=== PATIENT | male | born 1935 | race Caucasian/White ===

== ENCOUNTER 2020-06-21 08:52 | Inpatient (IN) | payer OTHER, MEDICAID, SELFPAY ==
[~2020-06-21] VITALS: Ht 167.6 cm; Wt 53.5 kg
[2020-06-21 08:58] VITALS: BP 120/51
--- NOTE | 2020-06-21 09:02 | NUR ---
PATIENT AMBULATED TO BED 3.
[2020-06-21 10:00] LABS: BASOPHILS % (AUTO) 0.3 % (0.0-2.0); EOSINOPHILS % (AUTO) 0.5 % (0.0-4.0); HEMOGLOBIN 10.6 g/dL (12.0-18.0); LYMPHOCYTES # (AUTO) 0.5 K/uL (2.0-11.5); LYMPHOCYTES % (AUTO) 7.4 % (20.5-51.1); MEAN CORPUSCULAR HEMOGLOBIN 30 pg (27-31); MEAN CORPUSCULAR HGB CONC 32 g/dL (33-37); MEAN CORPUSCULAR VOLUME 92.5 fL (80-94); MONOCYTES # (AUTO) 0.7 K/uL (0.8-1.0); MONOCYTES % (AUTO) 11.6 % (1.7-9.3); NEUTROPHILS # (AUTO) 4.9 K/uL (1.8-7.7); NEUTROPHILS % (AUTO) 80.2 % (42.2-75.2); PLATELET COUNT (AUTO) 217 K/uL (140-450); RED BLOOD CELL COUNT(AUTO) 3.57 MIL/uL (4.20-6.10); RED CELL DISTRIBUTION WIDTH 16.3 % (11.6-13.7); WHITE BLOOD COUNT (AUTO) 6.1 K/uL (4.8-10.8)
[2020-06-21 10:16] LABS: ANION GAP 9.5 (8-16); ASPARTATE AMINOTRANSFERASE 30 U/L (15-37); CARBON DIOXIDE 28.5 mmol/L (21-32); CHLORIDE 103 mmol/L (98-107); GLUCOSE 100 mg/dL (74-106); SODIUM SERUM 137 mmol/L (136-145); TOTAL BILIRUBIN 0.6 mg/dL (0.0-1.0); UREA NITROGEN, BLOOD 25 mg/dL (7-18)
[2020-06-21 10:27] LABS: RSV NEGATIVE (NEGATIVE)
[2020-06-21] MEDS ORDERED: FERR-212 PO (10:27)
[2020-06-21] MEDS ORDERED: VITD400 GT (10:27)
[2020-06-21] MEDS ORDERED: APIX5TAB PO (10:27)
[2020-06-21 10:39] LABS: PROTHROMBIN TIME 12.1 secs (10.8-13.4)
[2020-06-21 10:42] LABS: C-REACTIVE PROTEIN QUANT 1.2 mg/dL (0.0-0.9)
--- NOTE | 2020-06-21 10:43 | NUR ---
@1963 Received care of 84 y/o male coming from home c/o bilateral lower extremity pitting edema x 1 week, presented to the ER dyspneic, SpO2 90-91% per dorothea RN. Pt first noticed swelling a day after getting his Covid shot. Pt has Hx of Afib, on blood thinners per pt's son contacted through pt's phone. Pt reports NKA. Pt connected to shoe fitter, supplemental O2 via NC @ 2lpm. assessing pt @ bedside.
[2020-06-21] MEDS ORDERED: PIPERACILLIN/TAZOBACTAM 3.375 GM in DEXTROSE 5% 50 ML IV ONE (10:50)
[2020-06-21] MEDS ORDERED: PIPERACILLIN/TAZOBACTAM 3.375 GM VIAL IV ONE (11:09)
[2020-06-21 11:10] LABS: BILIRUBIN,URINE NEGATIVE (NEGATIVE); BLOOD, URINE NEGATIVE (NEGATIVE); COLOR,URINE ORANGE (YELLOW); LEUKOCYTE ESTERASE ,URINE NEGATIVE (NEGATIVE); NITRITE, URINE NEGATIVE (NEGATIVE); UGLUCOSE NEGATIVE (NEGATIVE)
[2020-06-21 11:21] LABS: APPEARANCE,URINE CLEAR (CLEAR); RBC,URINE 0-5 /HPF (0-5); WBC,URINE 0-5 /HPF (0-5)
[2020-06-21] MEDS ORDERED: ASPIRIN 81 MG TAB.CHEW PO ONE (11:40)
--- NOTE | 2020-06-21 12:15 | NUR ---
Patient taken to CT via mani
--- NOTE | 2020-06-21 12:32 | NUR ---
Covid swab collected and given to phleb.
--- NOTE | 2020-06-21 14:00 | NUR ---
RECEIVED ENDORSEMENT FROM ER NURSE ODELL. PATIENT IN BED AOX4. PATIENT ADMITTED WITH CHIEF COMPLAINT OF SOB AND BILATERAL SWELLING OF LEGS. DX PNA. HX OF ATRIAL FIB. PATIENT IS NKA AND FULL CODE. INFLUENZA A-B IS NEGATIVE. RSV IS NEGATIVE. PATIENT HAS IV LINE WITH RIGHT FOREARM 18 GAUGE ON SALINE LOCK. IS ON 3 LITERS NASAL CANULA W/ 100% O2. CXR RESULTS ARE PULMONARY VASCULAR CONGESTION. CTA RESULTS ARE CHF W/ CARDIOMEGALY, PULMONARY VASCULAR CONGESTION, INTERSTITIAL EDEMA, BILATERAL PLEURAL EFFUSION. SAFETY MEASURES ARE IN PLACE. CALL LIGHT WITHIN REACH. WILL CONTINUE TO MONITOR NEEDED.
--- NOTE | 2020-06-21 14:08 | NUR ---
Patient will be admitted to care of DR SEARS. Admited to TELE . Will go to room 122B. Belongings list completed. Report to SANDY FU.
--- NOTE | 2020-06-21 14:10 | NUR ---
MRSA SAMPLE IS OBTAINED FROM PATIENT. SENT TO LABS. AWAITING RESULTS.
[2020-06-21 14:40] VITALS: BP 128/76
[2020-06-21] MEDS ORDERED: POTASSIUM CHLORIDE 10 MEQ TABER PO PRN (15:25)
[2020-06-21] MEDS ORDERED: ZOLPIDEM 5 MG TAB PO PRN (15:25)
[2020-06-21] MEDS ORDERED: guaiFENesin DM 200/20 MG-10 ML 10 ML UDC PO PRN (15:25)
[2020-06-21] MEDS ORDERED: ACETAMINOPHEN 325 MG TAB PO PRN (15:25)
[2020-06-21] MEDS ORDERED: HYDROcodone/APAP 7.5/325 MG 1 TAB PO PRN (15:25)
[2020-06-21] MEDS ORDERED: DOCUSATE SODIUM 100 MG GELCAP PO PRN (15:25)
[2020-06-21] MEDS ORDERED: ONDANSETRON 4 MG/2 ML VIAL IM/IVP PRN (15:25)
[2020-06-21] MEDS: NACL 0.9% 1,000 ML IV SCH (16:05)
[2020-06-21 16:10] LABS: CHOL/HDL RATIO 1.6 (1-4.5); FREE T4 (FREE THYROXINE) 1.23 ng/dL (0.76-1.46); MAGNESIUM 1.5 mg/dL (1.8-2.4); PHOSPHORUS 2.7 mg/dL (2.5-4.9); THYROID STIMULATING HORMONE 5.72 uIU/mL (0.34-3.74)
--- NOTE | 2020-06-21 16:10 | NUR ---
MEDICATION DUE GIVEN CHECK VITAL SIGNS PRIOR TO MEDICATION BP 150/81 LA 64 OXYGEN SATURATION 99%.
[2020-06-21] MEDS ORDERED: FUROSEMIDE 100 MG/10 ML VIAL IV SCH (16:30)
[2020-06-21] MEDS: ATORVASTATIN 20 MG TAB PO SCH (16:34)
[2020-06-21 16:45] VITALS: BP 150/81
--- NOTE | 2020-06-21 17:07 | NUR ---
PATIENT ON TELEMONITOR HR 41 A FIB AND BACK TO HR 66. DR SEARS AWARE.WILL CONTINUE TO MONITOR.
[2020-06-21] MEDS: PIPERACILLIN/TAZOBACTAM 3.375 GM in DEXTROSE 5% 50 ML IV SCH (17:14)
--- NOTE | 2020-06-21 17:16 | NUR ---
PATIENT SCHEDULED MEDICATION GIVEN. PATIENT IN BED STABLE NO DISTRESS NOTED. WILL CONTINUE TO MONITOR NEEDED.
--- NOTE | 2020-06-21 19:13 | NUR ---
ENDORSED CONTINUATION PLAN OF CARE TO DATASTAGE ARCHITECT NURSE. PATIENT IS STABLE.
[2020-06-21 20:00] VITALS: BP 142/78
[2020-06-21] MEDS ORDERED: CRUSHER, PILL MC ONE (20:48)
[2020-06-21] MEDS: METOPROLOL 25 MG TAB PO SCH (20:49)
[2020-06-22] VITALS: BP 138/76
[2020-06-22] MEDS: NACL 0.9% 1,000 ML IV SCH ×2 (03:55→16:35)
[2020-06-22 04:00] VITALS: BP 134/76
[2020-06-22 06:05] LABS: ANION GAP 11.3 (8-16); CHLORIDE 100 mmol/L (98-107); CREATININE 1.4 mg/dL (0.6-1.3); GLUCOSE 139 mg/dL (74-106); POTASSIUM 4.3 mmol/L (3.5-5.1); SODIUM SERUM 137 mmol/L (136-145); UREA NITROGEN, BLOOD 26 mg/dL (7-18)
[2020-06-22 06:11] LABS: BASOPHILS % (AUTO) 0.4 % (0.0-2.0); EOSINOPHILS % (AUTO) 0.4 % (0.0-4.0); HEMATOCRIT 37.4 % (36-52); LYMPHOCYTES # (AUTO) 0.6 K/uL (2.0-11.5); LYMPHOCYTES % (AUTO) 6.8 % (20.5-51.1); MEAN CORPUSCULAR HEMOGLOBIN 30 pg (27-31); MEAN CORPUSCULAR HGB CONC 32 g/dL (33-37); MEAN CORPUSCULAR VOLUME 93.6 fL (80-94); MONOCYTES # (AUTO) 0.9 K/uL (0.8-1.0); NEUTROPHILS # (AUTO) 6.7 K/uL (1.8-7.7); NEUTROPHILS % (AUTO) 81.4 % (42.2-75.2); PLATELET COUNT (AUTO) 246 K/uL (140-450); RED CELL DISTRIBUTION WIDTH 16.2 % (11.6-13.7); WHITE BLOOD COUNT (AUTO) 8.2 K/uL (4.8-10.8)
[2020-06-22] MEDS: PIPERACILLIN/TAZOBACTAM 3.375 GM in DEXTROSE 5% 50 ML IV SCH ×5 (06:30→17:33)
--- NOTE | 2020-06-22 07:30 | NUR ---
RECEIVED BEDSIDE ENDORSEMENT FROM [facility] NURSE.
[2020-06-22 08:00] VITALS: BP 147/96
[2020-06-22 08:08] LABS: T4 (THYROXINE) 7.3 ug/dL (4.5-12.0)
--- NOTE | 2020-06-22 08:54 | NUR ---
PATIENT HAS BEEN SCREENED AND CATEGORIZED MODERATE NUTRITION RISK. PATIENT WILL BE SEEN WITHIN 3-5 DAYS OF ADMISSION. 06/24/20 06/26/[address]
[2020-06-22] MEDS: METOPROLOL 25 MG TAB PO SCH ×2 (09:04→21:00)
[2020-06-22] MEDS: PANTOPRAZOLE 40 MG TABEC PO SCH (09:04)
[2020-06-22] MEDS: FUROSEMIDE 20 MG/2 ML VIAL IVP SCH ×2 (09:05→17:22)
--- NOTE | 2020-06-22 09:05 | NUR ---
DC PLANNIN YRS OLD MALE PATIENT WAS ADMITTED FROM HOME WITH A DX OF PNEUMONIA. PT HAS A HX OF CAD , A-FIB AND IRON DEFICIENCY. PT STATED RECEIVED COVID VACCINE LAS WEEK AND C/O WORSENING SOB. CXR SHOWED PNEUMONIA . RAPID COVID TEST NEGATIVE PCR IS PENDING. ON O2 3L/NC SATING 99% STARTED COVID TREATMENT , RT PROTOCOL, ZOSYN IV ABX AND IV LASIX. CONSULTED WITH PULMO AND GRILL ASSOCIATE. DC PLAN TO GO HOME WHEN STABLE CM TO FOLLOW. Addendum: 06/25/20 at 1530 by Nalini Coto RN DC PLANNING: Addendum: 06/26/20 at 1452 by Nalini Coto RN DC PLANNING: CHEST CT AND US SHOWED BILATERAL PLEURAL EFFUSIONS SCHEDULE FOR THORACENTESIS ,CONTINUE IV ABX ZOSYN AND LASIX IV. ON 6L/NC SATING 94% CARDIO, NEPHRO AND PULMO FOLLOWING. CM TO FOLLOW Addendum: 07/02/20 at 1421 by Lacy Talavera REMAINS IN ICU, ON BIPAP FIO2 60%, O2 SAT 98%. ON DOPAMINE DRIP, BP 100/49. ON FUROSEMIDE DRIP. ON TPN. PER CARDIO,NOT A CANDIDATE FOR HD. Addendum: 07/03/20 at 1119 by Lacy Talavera RECEIVED AN ORDER FOR LTAC EVALUATION FOR RESPIRATORY TREATMENT AND IV ANTIBIOTIC FOR PNEUMONIA. CONTACTED PATIENT'S SON GINA SHUKLA JR AT [phone] TO DISCUSS DC PLAN. HE STATED HE HAS HIS GF SHAD WHO IS A NURSE WITH HIM AND IS GIVING ME AUTHORIZATION TO SHARE INFORMATION TO HER. ALL QUESTIONS AND CONCERNS ANSWERED AND BOTH IS IN AGREEMENT WITH THE PLAN. REFERRAL SENT TO [facility]. ROTHMAN MADE AWARE. [facility], THEY ARE ALMOST AT [facility] BUT WILL REACH OUT TO THE PATIENT'S SON IF THEY WANT TO GO OUT OUTSIDE IE. WILL FOLLOW UP. Addendum: 07/04/20 at 0909 by Lacy Talavera CM PER [facility], HE WAS NOT ABLE TO GET A HOLD OF THE PATIENT'S SON TODAY. HE WILL FOLLOW TODAY. WILL FOLLOW UP Addendum: 07/04/20 at 1552 by Lacy Talavera PER LORNA, NO ICU BEDS AVAILABLE AT THIS TIME. WILL FOLLOW UP IN AM. Addendum: 07/06/20 at 1111 by Nalini Coto RN DC PLANNING: RECEIVED A CALL FROM JOAQUIN EASON WITH [facility] UPDATED PT'S CLINICALS AND REQUEST AN ICU BED. PER ANJ[facility] WILL CALL US ONCE ICU BED AVAILABLE. CM TO FOLLOW Addendum: 07/06/20 at 1125 by Sheree Luna CM DC CHARM FILTER OPERATOR HELPER: FAXED UPDATED CLINICALS TO [facility].
--- NOTE | 2020-06-22 09:12 | NUR ---
ADMINISTERED PRESCRIBED MEDS PER MD ORDER. PATIENT TOLERATED WELL. MEDICATION EDUCATION REINFORCEMENT NEEDED DUE TO LANGUAGE BARRIER. PATIENT IN BED EATING BREAKFAST AND WATCHING TELEVISION. NO SIGNS OF DISTRESS NOTED. PATIENT NEEDS REMINDERS TO KEEP NASAL CANNULA IN BOTH NOSTRILS AT ALL TIMES. SAFETY MEASURES IN PLACE. WILL CONTINUE TO MONITOR.
--- NOTE | 2020-06-22 11:11 | NUR ---
SOCIAL WORK NOTE: Patient's Orientation Unable To Assess Information Provided By GINA SHUKLA JR - SON Comments SW WAS UNABLE TO MEET PATIENT AT BEDSIDE TO COMPLETE ASSESSMENT. SW COMPLETED ASSESSMENT WITH PATIENT'S SON. Alumina Refinery Operator, Realtionship and Phone Number GINA SHUKLA JR SON [phone] [facility] Power of Trim Sawyer No Does Patient Have a POLST No Identifying Problems No Social Work Triggers Is A Social Work Consult Needed No Mandate Report Filed No Explanation Of Identifying Problems PATIENT IS AN 84-YEAR-OLD MALE ADMITTED FOR PNEUMONIA. PATIENT HAS PMHX OF CAD, AFIB, AND IRON DEFICIENCY. Admitted From Home Pre-Admission Level Of Functioning Status Independent/Ambulatory Prior Resources/Services Used In Last 12 Months No Prior Resources Used Prior DME No Prior DME Used Dialysis Comments N/A Living Situation Lives With Family House Patient Had Caregiver No Home Support No Caregiver Issues Financial Issues No Known Financial Issue Referral To The Financial Counselor Needed No Factors/Needs No D/C Needs Identified Pt/Rep Participated In Discharge Plan Yes Patient/Family Agress With Discharge Plan Yes Discharge Plan Comments TENTATIVE DISCHARGE PLAN IS FOR PATIENT TO RETURN HOME. DC Plan Status Initiated Addendum: 07/04/20 at 1327 by Gilberto BOYD SABRA CONTACTED PATIENT'S SON GINA SHUKLA JR. [phone] DUE TO VM THAT HE LEFT TO [facility]. SABRA LEFT ADDITIONAL VM TO GINA GAYLA SCHULTZ REGARDING PATIENT'S BELONGINGS.
--- NOTE | 2020-06-22 11:59 | NUR ---
ADMINISTERED PRESCRIBED MEDS PER MD ORDER. PATIENT TOLERATED WELL. MEDICATION EDUCATION REINFORCEMENT NEEDED. PATIENT RESTING IN BED. VISIBLE RISE AND FALL OF CHEST NOTED. NO SIGNS OF DISTRESS. NOON VITAL SIGNS OBTAINED. SAFETY MEASURES IN PLACE. WILL CONTINUE TO MONITOR.
[2020-06-22 12:00] VITALS: BP 149/75
--- NOTE | 2020-06-22 14:26 | NUR ---
HOURLY ROUNDING PERFORMED. PATIENT IN BED WATCHING TELEVISION. LUNCH TRAY UNTOUCHED, PATIENT STATED HE WILL EAT LATER ON TODAY. NO SIGNS OF DISTRESS/DISCOMFORT. PATIENT SPO2 95%. SAFETY MEASURES IN PLACE. WILL CONTINUE TO MONITOR.
[2020-06-22 16:00] VITALS: BP 144/97
--- NOTE | 2020-06-22 16:31 | NUR ---
PATIENT HAS PERIODS OF BRADYCARDIA, HR LOW 34 BPM THEN SHOOTS UP TO SR. DURING EPISODES OF BRADYCARDIA, PATIENT IS CHECKED ON, ALERT AND ORIENTED W/ NO SIGNS OF DISTRESS. PATIENT HAS HISTORY OF AFIB AND CAD. HAS CONSULT W/ [facility]USH AND [employer] CROP FARMER. WILL UPDATE [facility] AND [employer] FARMER W/ PATIENTS STATS.
--- NOTE | 2020-06-22 16:42 | NUR ---
PROTECTIVE SERVICES CASE WORKER NOTIFIED AND ACKNOWLEDGE PATIENT'S STATUS.
[2020-06-22] MEDS: ATORVASTATIN 20 MG TAB PO SCH (17:22)
--- NOTE | 2020-06-22 17:34 | NUR ---
ADMINISTERED PRESCRIBED MEDS PER MD ORDER. PATIENT TOLERATED WELL. MEDICATION EDUCATION REINFORCEMENT NEEDED. SAFETY MEASURES IN PLACE. WILL CONTINUE TO MONITOR.
[2020-06-22] MEDS ORDERED: MAG SULF 2000 MG/WATER PREMIX 50 ML IV SCH (19:00)
--- NOTE | 2020-06-22 19:00 | NUR ---
PATIENT RECEIVED IN BED, ALERT AND ORIENTED X 3 WITH SOME CONFUSION OF SITUATION. PATIENT EDUCATED TO MEDICATION REGIMEN, FALL AND SAFETY PRECAUTIONS AND RN PLAN OF CARE. PATIENT VERBALIZED CONCERNS OF MEDICAL PLAN OF CARE. NO BRADYCARDIA NOTED. NOTED CHF WITH CARDIOMEGALY, PULMONARY VASCULAR CONGESTION WITH BILATERAL PLEURAL EFFUSION. PATIENT RESPIRATIONS ARE EVEN AND NONLABORED. RN DISCUSSED PM MED SCHEDULE. CARDIAC STATUS SINUS RHYTHM. PATIENT RECEPTIVE TO PLAN OF CARE. NO ACUTE DISTRESS NOTED. VITAL SIGNS STABLE. ONGOING CARE RENDERED.
--- NOTE | 2020-06-22 19:29 | NUR ---
PT IN SEMI SCHUMACHER WATCHING TV W/ NO DISTRESS NOTED. PT CURRENTLY ON 2LNC SPO2 95% HR 57. WILL CONTINUE TO MONITOR
--- NOTE | 2020-06-22 19:32 | NUR ---
BEDSIDE ENDORSEMENT GIVEN TO NIGHTSHIFT NURSE FOR CONTINUITY OF CARE.
[2020-06-22 20:00] VITALS: BP 148/72
[2020-06-23] VITALS: BP 118/80
--- NOTE | 2020-06-23 | NUR ---
PATIENT SLEEPING DURING ROUNDING, EASILY AROUSED. FALL AND SAFETY PRECAUTIONS MAINTAINED. VITAL SIGNS STABLE NO ACUTE DISTRESS NOTED.
[2020-06-23 04:00] VITALS: BP 124/78
[2020-06-23] MEDS: NACL 0.9% 1,000 ML IV SCH ×2 (04:55→18:14)
[2020-06-23] MEDS: PIPERACILLIN/TAZOBACTAM 3.375 GM in DEXTROSE 5% 50 ML IV SCH ×5 (06:05→18:15)
[2020-06-23 06:35] LABS: BASOPHILS % (AUTO) 0.5 % (0.0-2.0); EOSINOPHILS % (AUTO) 0.2 % (0.0-4.0); HEMATOCRIT 35.3 % (36-52); HEMOGLOBIN 11.3 g/dL (12.0-18.0); LYMPHOCYTES # (AUTO) 0.4 K/uL (2.0-11.5); MEAN CORPUSCULAR HEMOGLOBIN 30 pg (27-31); MEAN CORPUSCULAR HGB CONC 32 g/dL (33-37); MEAN CORPUSCULAR VOLUME 93.4 fL (80-94); MONOCYTES # (AUTO) 0.6 K/uL (0.8-1.0); MONOCYTES % (AUTO) 9.2 % (1.7-9.3); NEUTROPHILS # (AUTO) 5.8 K/uL (1.8-7.7); NEUTROPHILS % (AUTO) 84.1 % (42.2-75.2); PLATELET COUNT (AUTO) 229 K/uL (140-450); RED BLOOD CELL COUNT(AUTO) 3.78 MIL/uL (4.20-6.10); RED CELL DISTRIBUTION WIDTH 15.9 % (11.6-13.7)
[2020-06-23 06:53] LABS: ANION GAP 11.7 (8-16); CARBON DIOXIDE 29.1 mmol/L (21-32); CHLORIDE 98 mmol/L (98-107); CREATININE 1.2 mg/dL (0.6-1.3); GLUCOSE 145 mg/dL (74-106); POTASSIUM 4.8 mmol/L (3.5-5.1); SODIUM SERUM 134 mmol/L (136-145); UREA NITROGEN, BLOOD 26 mg/dL (7-18)
--- NOTE | 2020-06-23 07:25 | NUR ---
RECEIVED RAPPORT FROM APPRENTICE ELECTRICIAN NURSE. PATIENT RESTING IN BED. RESPIRATIONS EVEN AND UNLABORED. SKIN IS DRY AND WARM TO TOUCH. IV ON RIGHT FORE ARM 18 G CLEAN DRY INTACT. SAFETY MEASURES IN PLACE. WILL CONTINUE TO MONITOR.
[2020-06-23 08:00] VITALS: BP 135/71
[2020-06-23] MEDS: POTASSIUM CHLORIDE 10 MEQ TABER PO SCH (08:34)
[2020-06-23] MEDS: METOPROLOL 25 MG TAB PO SCH ×2 (08:35→21:00)
[2020-06-23] MEDS: PANTOPRAZOLE 40 MG TABEC PO SCH (08:43)
[2020-06-23] MEDS: FUROSEMIDE 40 MG/4 ML VIAL IVP SCH ×2 (08:44→17:34)
--- NOTE | 2020-06-23 08:55 | NUR ---
ADMINISTERED SCHEDULED MEDS PRESCRIBED PER MD ORDER. PT TOLERATED WELL. MEDICATION EDUCATION PERFORMED. PT VERBALIZED UNDERSTANDING. SAFETY MEASURES IN PLACE WILL CONTINUE TO MONITOR.
--- NOTE | 2020-06-23 10:15 | NUR ---
PTE NEEDS TO GO TO BATHROOM. PT IS WEAK STAND BY ASSISTANCE NEEDED. PT TO BE DISCHARGED TOMORROW. ON 3 l NC TRIED WEANING OFF OXYGEN BY REMOVING O2 CANULA BEFORE PATIENT AMBULATED TO BATHROOM. PT USED BATHROOM RETURNED SAFELY BACK TO BED. NO SIGNS OR SYMPTOMS OF RESPIRATORY DISTRESS. PT O2 AT 95% ON ROOM AIR AFTER AMBULATING TO AND FROM THE BATHROOM. PT COMPLAINED OF DIZZINESS. PLACED PT ON 2L SATURATING AT 97% WILL WEAN SLOWLY. SAFETY MEASURES IN PLACE. WILL CONTINUE TO MONITOR
--- NOTE | 2020-06-23 11:00 | NUR ---
PATIENT'S PREVIOUS PCR COVID TEST WAS INDETERMINANT. PER DR. SEARS ORDERS. PT TO RECEIVE ANOTHER TEST. SWABBED PT PER MD ORDER. PT TOLERATED WELL. SPECIMEN SENT BACK TO LAB. WILL CONTINUE TO MONITOR
[2020-06-23 12:00] VITALS: BP 134/79
--- NOTE | 2020-06-23 12:05 | NUR ---
ADMINISTERED SCHED MED PRESCRIBED PER MD ORDER. PT TOLERATED WELL. MEDICATION EDUCATION PERFORMED. PT VERBALIZED UNDERSTANDING. SAFETY MEASURES IN PLACE. WILL CONTINUE TO MONITOR
--- NOTE | 2020-06-23 14:20 | NUR ---
PT AMBULATED TO THE RESTROOM WITH ASSISTANCE TOLERATED WELL. PT IS RESTING IN BED COMFORTABLY. PT ABLE TO MAKE NEEDS KNOWN. RESPIRATIONS EVEN AND UNLABORED WITH NO SOB OR RESPIRATORY DISTRESS. SKIN WARM AND DRY TO TOUCH.SAFETY MEASURES IN PLACE. WILL CONTINUE TO MONITOR
[2020-06-23 16:00] VITALS: BP 135/74
--- NOTE | 2020-06-23 16:25 | NUR ---
PT RESTING IN BED. PT ABLE TO MAKE NEEDS KNOWN. RESPIRATIONS EVEN AND UNLABORED WITH NO SOB OR RESPIRATORY DISTRESS. SKIN WARM AND DRY TO TOUCH. PT COMPLAINED THAT IV SITE WAS LEAKING. IT WAS CHANGED TO LEFT AC 24 G.TOLERATED WELL. NO COMPLAINS OF PAIN AT THIS TIME 0. SAFETY MEASURES IN PLACE. WILL CONTINUE TO MONITOR
[2020-06-23] MEDS: ATORVASTATIN 20 MG TAB PO SCH (17:35)
--- NOTE | 2020-06-23 17:36 | NUR ---
ADMINISTERED SCHED MED PRESCRIBED PER MD ORDER. PT TOLERATED WELL. MEDICATION EDUCATION PERFORMED. PT VERBALIZED UNDERSTANDING. SAFETY MEASURES IN PLACE. WILL CONTINUE TO MONITOR
--- NOTE | 2020-06-23 19:15 | NUR ---
RECEIVED BEDSIDE REPORT FROM DAY SHIFT NURSE FOR CONTINUITY OF CARE. PT IS AWAKE AND ALERT, LAYING IN SEMI FOWLERS POSITION. ON 1L O2 NC WITH BREATHING UNLABORED. PT IS AMBULATORY WITH ASSISTANCE W/ BATHROOM PRIVILEGES. SKIN IS WARM AND DRY. SCAB ON THE RIGHT ELBOW AND KNEE. DISCOLORATION ON THE BILAT LOWER EXTREMITIES. IV IS IN THE RIGHT AX 24 GAUGE RUNNING NS AT 80 ML PER HOUR PER ORDER. PT IS STABLE AT THIS TIME. PLAN OF CARE DISCUSSED. STANDARD AND FALL PRECAUTIONS IN PLACE.
--- NOTE | 2020-06-23 19:20 | NUR ---
ENDORSED TO NIGHTSHIFT FOR CONTINUITY OF CARE. PT IS STABLE
[2020-06-23 20:00] VITALS: BP 136/82
--- NOTE | 2020-06-23 21:00 | NUR ---
PT WAS NOT GIVEN METOPROLOL ORDERED FOR DECREASED PULSE. HR WAS 59 AND BP IS 132/90. WILL CONTINUE TO MONITOR HR AND BP.
--- NOTE | 2020-06-23 23:00 | NUR ---
PT IS STABLE. SLEEPING IN SEMI FOWLERS POSITION WITH BREATHING UNLABORED. PT IS ON 4L O2 NC. NO RESPIRATORY DISTRESS NOTED. AFIB ON TELE MONITORING. IV IS PATENT AND INFUSING. CALL LIGHT IS WITHIN REACH.
[2020-06-24] VITALS: BP 126/75
--- NOTE | 2020-06-24 00:30 | NUR ---
RT AT BEDSIDE ASSESSING PT. PT STATES THAT HIS NOSE IS DRY AND A HUMIDIFIER WAS PLACED ON NC. PT WAS REPOSITIONED IN BED. PILLOWS PLACED TO OFFSET PRESSURE. NO DISTRESS NOTED AT THIS TIME.
[2020-06-24] MEDS: PIPERACILLIN/TAZOBACTAM 3.375 GM in DEXTROSE 5% 50 ML IV SCH ×5 (01:13→23:31)
--- NOTE | 2020-06-24 02:30 | NUR ---
ROUNDED ON PT. NC WAS PLACED BACK ON PT IT FELL OFF DURING SLEEP. O2 SAT IS 90%. NO RESPIRATORY DISTRESS NOTED. BREATHING IS UNLABORED. PT IS SLEEPING. IV IS PATENT AND INFUSING. WILL CONTINUE TO MONITOR.
[2020-06-24 04:00] VITALS: BP 150/78
--- NOTE | 2020-06-24 04:30 | NUR ---
PT IS ASLEEP BUT WAKES UP EASILY WITH NOISE. PT STATES HE IS OKAY RIGHT NOW. NO DISTRESS NOTED. FLUIDS ARE INFUSING. URINAL WAS EMPTIED. BREATHING IS UNLABORED WITH 4L O2 NC IN PLACE. PT IS STABLE.
[2020-06-24] MEDS: NACL 0.9% 1,000 ML IV SCH ×2 (05:01→19:10)
--- NOTE | 2020-06-24 06:10 | NUR ---
BALLASTER AT BEDSIDE TO DRAW LABS. PT TOLERATED THIS WELL. PT WAS REPOSITIONED IN BED HE BEGAN TO SLIDE DOWNWARD. PT REPOSITIONS SELF WITH PILLOWS IN PLACE. WATER WAS PROVIDED. PT IS STABLE.
--- NOTE | 2020-06-24 07:10 | NUR ---
ENDORSED PT TO DAY SHIFT NURSE FOR CONTINUITY OF CARE. PLAN OF CARE DISCUSSED. PT IS STABLE.
--- NOTE | 2020-06-24 07:14 | NUR ---
RECEIVED REPORT FROM NIGHTSHIFT NURSE. PT ABLE TO MAKE NEEDS KNOWN. RESPIRATIONS EVEN AND UNLABORED WITH NO SOB OR RESPIRATORY DISTRESS. SKIN WARM AND DRY TO TOUCH. IV SITE IN RAC 24G IS CLEAN, DRY, AND INTACT. SAFETY MEASURES IN PLACE. WILL CONTINUE TO MONITOR
[2020-06-24 07:19] LABS: BASOPHILS % (AUTO) 0.5 % (0.0-2.0); EOSINOPHILS % (AUTO) 0.3 % (0.0-4.0); HEMATOCRIT 34.3 % (36-52); HEMOGLOBIN 11.1 g/dL (12.0-18.0); LYMPHOCYTES # (AUTO) 0.3 K/uL (2.0-11.5); MEAN CORPUSCULAR HEMOGLOBIN 30 pg (27-31); MEAN CORPUSCULAR HGB CONC 32 g/dL (33-37); MEAN CORPUSCULAR VOLUME 92.7 fL (80-94); MONOCYTES # (AUTO) 0.6 K/uL (0.8-1.0); MONOCYTES % (AUTO) 9.1 % (1.7-9.3); PLATELET COUNT (AUTO) 198 K/uL (140-450); RED CELL DISTRIBUTION WIDTH 16.1 % (11.6-13.7)
[2020-06-24 07:37] LABS: NEUTROPHILS % (AUTO) 86.1 % (42.2-75.2)
[2020-06-24 07:51] LABS: ANION GAP 15.1 (8-16); CARBON DIOXIDE 30.1 mmol/L (21-32); CHLORIDE 96 mmol/L (98-107); CREATININE 1.4 mg/dL (0.6-1.3); GLUCOSE 116 mg/dL (74-106); POTASSIUM 4.2 mmol/L (3.5-5.1); SODIUM SERUM 137 mmol/L (136-145); UREA NITROGEN, BLOOD 28 mg/dL (7-18)
[2020-06-24 08:00] VITALS: BP 122/69
[2020-06-24] MEDS: METOPROLOL 25 MG TAB PO SCH ×2 (09:00→21:33)
--- NOTE | 2020-06-24 09:50 | NUR ---
PT MEDICATION ADMINISTERED ORDERED PER MD. MEDICATION EDUCATION RECEIVED PATIENT VERBALIZED UNDERSTANDING. PT IS BREATHING SYMMETRICALLY AND IS UNLABORED. PT IS ALERT AND WARM TO TOUCH. ALL SAFETY MEASURES ARE IN PLACE. PT DENIES ANY PAIN AT THIS TIME WILL CONTINUE TO MONITOR.
[2020-06-24] MEDS: POTASSIUM CHLORIDE 10 MEQ TABER PO SCH (09:57)
[2020-06-24] MEDS: PANTOPRAZOLE 40 MG TABEC PO SCH (09:57)
[2020-06-24] MEDS: FUROSEMIDE 40 MG/4 ML VIAL IVP SCH ×2 (09:59→17:00)
--- NOTE | 2020-06-24 10:37 | NUR ---
PT PLACED ON 2L NC O2 AT 100%. PT AMBULATED TO THE BATHROOM WITH ASSISTANCE. TOLERATED WELL. NO SIGNS OR SYMPTOMS OF DISTRESS. PT IS RESTING IN BED COMFORTABLY. PT IS BREATHING SYMMETRICALLY AND IS UNLABORED. PT IS ALERT AND WARM TO TOUCH. ALL SAFETY MEASURES ARE IN PLACE. PT DENIES ANY PAIN AT THIS TIME WILL CONTINUE TO MONITOR.
[2020-06-24 12:37] VITALS: BP 119/79
--- NOTE | 2020-06-24 14:29 | NUR ---
PT IS IN BED RESTING COMFORTABLY ASSISTED WITH URINAL.ASSESSED IV SITE. CLEAR DRY AND INTACT. PT IS BREATHING SYMMETRICALLY AND IS UNLABORED. PT IS ALERT AND WARM TO TOUCH. ALL SAFETY MEASURES ARE IN PLACE. PT DENIES ANY PAIN AT THIS TIME WILL CONTINUE TO MONITOR.
[2020-06-24 16:00] VITALS: BP 111/80
[2020-06-24] MEDS: ATORVASTATIN 20 MG TAB PO SCH (17:03)
--- NOTE | 2020-06-24 17:13 | NUR ---
PT IN BED RESTING COMFORTABLY. PT HELPED WITH SELECTING TV CHANNELS IN [place] AND WITH TALKING TO SON (GINA) ON THE PHONE. PT IS BREATHING SYMMETRICALLY AND IS UNLABORED. THERE ARE NO SIGNS OR SYMPTOMS O DISTRESS. PT IS ALERT AND WARM TO TOUCH. ALL SAFETY MEASURES ARE IN PLACE. PT DENIES ANY PAIN AT THIS TIME WILL CONTINUE TO MONITOR.
--- NOTE | 2020-06-24 17:15 | NUR ---
PT MEDICATION ADMINISTERED ORDERED PER MD. MEDICATION EDUCATION RECEIVED PATIENT VERBALIZED UNDERSTANDING. NO SIGNS OR SYMPTOMS OF DISTRESS.
--- NOTE | 2020-06-24 18:25 | NUR ---
ADMINISTERED SCHED MED PRESCRIBED PER MD ORDER. PT TOLERATED WELL. SAFETY MEASURES IN PLACE. WILL CONTINUE TO MONITOR
--- NOTE | 2020-06-24 19:33 | NUR ---
ENDORSED OR DRY CELL ASSEMBLY MACHINE TENDER NURSE FOR CONTINUITY OF CARE. PT IS STABLE
--- NOTE | 2020-06-24 19:35 | NUR ---
RECEIVED REPORT FROM MELODIE FU DAYSHIFT NURSE AT BEDSIDE FOR CONTINUITY OF CARE, PT IN STABLE CONDITION.
[2020-06-24 20:00] VITALS: BP 144/79
--- NOTE | 2020-06-24 20:00 | NUR ---
PT IN BED AOX3-4 MOSTLY BENGALI SPEAKING. V/S FOLLOWS: T 98.1 P 60 R 21 B/P 144/79 02 98 WITH 1 LITER VIA N/C. PT HAS RAC 24 GUAGE INTACT AND RUNNING NORMAL SALINE AT 80MLS/HR. ALL REQUESTED NEEDS ATTENDED. PT NEGATIVE FOR COVID.
--- NOTE | 2020-06-24 21:00 | NUR ---
PT GIVEN ORDERED LOPRESSOR. EDUCATION REGARDING MEDICATION PROVIDED AT BEDSIDE. PT RR EVEN AND UNLABORED , HE CONTINUES WITH 1 LITER SUPPLIMENTAL 02 VIA N/C. ALL REQUESTED NEEDS ATTENDED BY STAFF.
--- NOTE | 2020-06-24 22:30 | NUR ---
PT REQUESTED TO HAVE STAFF CALLL SON TO BRING HOSE TUBING BACKER. SPOKE WITH SON AND HE WILL DROP OF AT THE LOBBY. PT ALSO C/O OF FEELING ANXIOUS AND IS REQUESTING MEDICATION . V/S FOLLOWS: P 72 R 20 B/P 133/87 02 100% ON 1 LITER VIA N/C. WILL CONTACT PRIMARY MD PER PT REQUEST.
[2020-06-24] MEDS ORDERED: LORazepam 1 MG TAB PO PRN (22:55)
--- NOTE | 2020-06-24 23:30 | NUR ---
NEW ORDERS RECEIVED FROM , 1MG ATIVAN PO/PRN Q 6 HRS. PT GIVEN 1 TAB ATIVAN ORDERED. SON ALSO DROPPED OFF CHARGE IN THE LOBBY AND PT WAS ABLE TO GET THE PHONE CHARGING AT THIS TIME. PT ALSO RECEIVED SCHEDULED ZOSYN WHICH WAS HUNG AND RUNNING ORDERED. ALL OTHER REQUESTS ATTENDED BY STAFF. ALL FALLS PRECAUTIONS IN PLACE.
[2020-06-25] VITALS: BP 144/62
--- NOTE | 2020-06-25 00:30 | NUR ---
PT IN BED RESTING V/S FOLLOWS: T 98.3 P 78 R 23 B/P 144/62 02 96% ON 1 LITER N/C. ALL ORDERED PRECAUTIONS IN PLACE.
--- NOTE | 2020-06-25 02:30 | NUR ---
PT GOT OUT OF BED AND PULLED OUT IV SITE, PT ALSO PULLED OFF TELE LEADS AND YELLOW GOWN. PT WAS REORIENTED AND REMINDED HE IS NOT HOME BUT IN A HOSPITAL. PT ASKED FOR A SMOKE BUT AGAIN WAS REDIRECTED THAT THERE IS NO SMOKING HERE. NEW IV SITE PROVIDED RIGHT UPPER ARM 22G. ALL REQUESTED NEEDS ATTENDED AND CALL BRUNNER IN REACH. .
[2020-06-25 04:00] VITALS: BP 125/59
--- NOTE | 2020-06-25 04:00 | NUR ---
PT AGAIN REDIRECTED DUE TO HIM GETTING OUT OF BED TAKING OFF LEADS AND PULLING OUT IV SITE. AND TRYING TO GET DRESSED AT BEDSIDE. STAFF STAND BY ASSIST SO THAT HE CAN PUT CLOTHES ON DUE TO FACT THAT PT WAS C/O OF THE COLD ROOM. PT WAS THEN REDIRECTED TO STAY IN BED. FREQUENT CHECK OF PT TO ENSURE THAT PT STAYS IN BED.
[2020-06-25 04:54] LABS: BASOPHILS % (AUTO) 0.2 % (0.0-2.0); EOSINOPHILS % (AUTO) 0.1 % (0.0-4.0); HEMATOCRIT 33.9 % (36-52); HEMOGLOBIN 10.9 g/dL (12.0-18.0); LYMPHOCYTES # (AUTO) 0.3 K/uL (2.0-11.5); LYMPHOCYTES % (AUTO) 3.4 % (20.5-51.1); MEAN CORPUSCULAR HEMOGLOBIN 30 pg (27-31); MEAN CORPUSCULAR HGB CONC 32 g/dL (33-37); MEAN CORPUSCULAR VOLUME 93.3 fL (80-94); MONOCYTES # (AUTO) 0.6 K/uL (0.8-1.0); MONOCYTES % (AUTO) 8.1 % (1.7-9.3); NEUTROPHILS # (AUTO) 6.7 K/uL (1.8-7.7); NEUTROPHILS % (AUTO) 88.2 % (42.2-75.2); PLATELET COUNT (AUTO) 222 K/uL (140-450); RED BLOOD CELL COUNT(AUTO) 3.63 MIL/uL (4.20-6.10); RED CELL DISTRIBUTION WIDTH 16.2 % (11.6-13.7); WHITE BLOOD COUNT (AUTO) 7.6 K/uL (4.8-10.8)
[2020-06-25 05:33] LABS: ANION GAP 12.1 (8-16); CARBON DIOXIDE 33.8 mmol/L (21-32); CHLORIDE 93 mmol/L (98-107); CREATININE 1.8 mg/dL (0.6-1.3); GLUCOSE 141 mg/dL (74-106); POTASSIUM 3.9 mmol/L (3.5-5.1); SODIUM SERUM 135 mmol/L (136-145); UREA NITROGEN, BLOOD 35 mg/dL (7-18)
[2020-06-25] MEDS: PIPERACILLIN/TAZOBACTAM 3.375 GM in DEXTROSE 5% 50 ML IV SCH ×4 (06:27→23:48)
--- NOTE | 2020-06-25 06:45 | NUR ---
SPOKE WITH MD SEARS, WHO DECLINED TO ORDER SITTER AT BEDSIDE, AST THIS TIME, WILL REEVALUATE DURING ROUNDS. NEW IV SITE 22 ON RIGHT WRIST, WAS PULLED OUT BY PT. NEW IV PLACED AND ZOSYN STARTED ORDERED. AGAIN PT PULED OUT IV AND TRIED TO GET UP. CHARGE NURSE ANDREY PLACED A NEW IV SITE 22G R/F/A. IV ABT ZOSYN RUNNING AT 100MLS/HR ORDERED.
[2020-06-25] MEDS: NACL 0.9% 1,000 ML IV SCH ×2 (06:55→19:25)
--- NOTE | 2020-06-25 07:25 | NUR ---
RECEIVED REPORT FROM CLAY DRY PRESS HELPER RN FOR CONTINUITY OF CARE. PATIENT RESTING IN BED AAOX2-3 WITH OCCASIONAL CONFUSION WITH 2L OXYGEN VIA NC. IV TO RIGHT FOREARM 22G INFUSING IVF NS@ 80ML/HR. ON TELE MONITOR. SKIN WARM AND DRY. FALL RISK, TRIED TO GET OFF OF BED AND PULLED OUT IV SEVERAL TIMES PER CLAY DRY PRESS HELPER RN. NO ACUTE DISTRESS NOTED AT THIS TIME. WILL CONTINUE TO MONITOR.
[2020-06-25 08:00] VITALS: BP 104/57
[2020-06-25] MEDS: PANTOPRAZOLE 40 MG TABEC PO SCH (08:43)
[2020-06-25] MEDS: POTASSIUM CHLORIDE 10 MEQ TABER PO SCH (08:43)
[2020-06-25] MEDS: METOPROLOL 25 MG TAB PO SCH ×2 (08:46→21:00)
[2020-06-25] MEDS: FUROSEMIDE 40 MG/4 ML VIAL IVP SCH ×2 (08:55→17:39)
[2020-06-25] MEDS ORDERED: LORazepam 2 MG/ML VIAL IVP PRN (10:25)
--- NOTE | 2020-06-25 10:38 | NUR ---
PATIENT IS UNDER ECHOCARDIOGRAM, LEFT LUNG WITH 6.7CM WIDTH PLEURAL FLUID, INFORMED DR. GARCÍA, WILL ORDER CXR.
--- NOTE | 2020-06-25 11:02 | NUR ---
INFORMED PULMONOLOGY DR. LICEA REGARDING PATIENT'S CONDITION. STAT ABG ORDER OBTAINED. DR. LICEA WILL CHECK PATIENT SHORTLY.
--- NOTE | 2020-06-25 11:18 | NUR ---
DR. LICEA CHECKED ON THE PATIENT. PUT PATIENT ON OXYGEN VIA MASK. WILL CONTINUE TO MONITOR.
[2020-06-25] MEDS ORDERED: PHENYLEPHRINE 10 MG/ML VIAL INJ SCH (11:45)
--- NOTE | 2020-06-25 11:50 | NUR ---
G DONE. RESULT INFORMED DR. LICEA.
[2020-06-25 12:00] VITALS: BP 138/70
--- NOTE | 2020-06-25 12:22 | NUR ---
RT CAIN TRIED PUT PATIENT ON BIPAP, PER DR. LICEA'S ORDER. HOWEVER. PATIENT TRIED TO PULL OUT THE BIPAP, AND NOT ABLE TO PUT HIM ON RESTRAIN IF ON BIPAP. DR. LICEA INFORMED.
--- NOTE | 2020-06-25 12:29 | NUR ---
DR. LICEA STATED PUT PATIENT ON ROOM AIR, KEEP O2 SAT >88%. REPEAT ABG IN 1 HOUR. WILL CARRY OUT.
--- NOTE | 2020-06-25 12:32 | NUR ---
PT REMOVED BIPAP MACHINE IMMEDIATELY AFTER IT WAS PLACED ON. I PLACED ON THE BIPAP MACHINE AND EXPLAINED TO THE PT WHY IT WAS IMPORTANT TO WEAR IT BUT PT DID NOT FOLLOW COMMANDS AND KEPT REMOVING IT. PT HAS BEEN PLACED BACK ON SIMPLE MASK AT 5L/MIN AND IS DOING WELL. RN IN CHARGE OF THE PT HAS BEEN NOTIFIED.
--- NOTE | 2020-06-25 14:58 | NUR ---
PATIENT WAS BROUGHT TO CT DEP TO HAVE CT OF HEAD, ABD/PELVIS. WILL FOLLOW UP.
--- NOTE | 2020-06-25 15:20 | NUR ---
PATIENT BACK FROM CT. PUT PATIENT BACK TO OXYGEN 1L VIA NC. RECONNECT WITH ADONIS KNIGHT TO WARM PATIENT UP. PATIENT SLEEPY. O2 SAT 97%, HR 54. WILL CONTINUE TO MONITOR.
[2020-06-25 16:00] VITALS: BP 138/78
[2020-06-25] MEDS: ATORVASTATIN 20 MG TAB PO SCH (17:39)
--- NOTE | 2020-06-25 19:22 | NUR ---
ENDORSED PATIENT TO ENGINE LATHE SET UP OPERATOR RN FOR CONTINUITY OF CARE. PATIENT REMOVED THE IV, BLEEDING AT SITE, COVERED WITH GAUZE. PATIENT TOOK OFF RESTRAINT SOMEHOW, TOOK OFF THE GOWN. PUT PATIENT BACK ON GOWN AND TELE MONITOR.
--- NOTE | 2020-06-25 19:23 | NUR ---
RECEIVED REPORT FROM DAY SHIFT NURSE. PT IN BED, CONFUSED. PT REMOVED GOWN, TELE MONITOR, BLANKET, BEAR HUGGER, AND IV ACCESS. ASSISTED PT IN PUTTING ON GOWN, HOOKED BACK TO TELE MONITOR, GAUZE PLACES ON IV SITE. PT RESPIRATIONS EVEN AND UNLABORED TO O2 1LPM/NC. O2 SAT 94%. NO S/SX OF DISTRESS NOTED. ABDOMEN IS SOFT AND NON-TENDER. SKIN IS COOL TO TOUCH, UNABLE TO TAKE TEMP, BEAR HUGGER IN PLACE. PT ALSO WITH MULTIPLE BRUISES AND SCABS. RESTRAINTS APPLIED, NO INJURIES NOTED. SAFETY MEASURES IN PLACE. CALL LIGHT WITHIN REACH. PT RE-ORIENTED, STILL CONFUSED. WILL CONTINUE TO MONITOR.
[2020-06-25 20:00] VITALS: BP 132/64
--- NOTE | 2020-06-25 20:00 | NUR ---
PT CONFUSED, CALLED SON (GINA) TO OBTAIN CONSENT FOR US GUIDED THORACENTESIS. SON SAID HE WILL THINK ABOUT IT AND CALL ONCE HE HAS MADE HIS DECISION.
--- NOTE | 2020-06-25 20:32 | NUR ---
PT SLEEPING IN BED SPO2 98% HR 68 NO DISTRESS NOTED WILL CONTINUE TO MONITOR
--- NOTE | 2020-06-25 21:00 | NUR ---
VS TAKEN. SCHEDULED METOPROLOL HELD, RR 55. NEW IV ACCESS INSERTED ON RIGHT FA G20, IVF INFUSING WELL. CONDOM CATHETER ALSO PLACED ORDERED. SAFETY MEASURES IN PLACE. WILL CONTINUE TO MONITOR.
--- NOTE | 2020-06-25 22:15 | NUR ---
FAMILY VISITED PT THROUGH WINDOW. SON ALSO GAVE CONSENT TO US GUIDED THORACENTESIS. FAMILY WISHES TO MODIFY CODE STATUS, FAMILY WANTS EVERYTHING BUT NO INTUBATION. MD MADE AWARE. WILL CONTINUE TO MONITOR.
[2020-06-25] MEDS ORDERED: FUROSEMIDE 20 MG/2 ML VIAL IVP ONE (23:00)
[2020-06-25 23:16] LABS: PROTHROMBIN TIME 14.7 secs (10.8-13.4)
[2020-06-26] VITALS: BP 127/64
--- NOTE | 2020-06-26 00:11 | NUR ---
VS TAKEN. TEMP 91.3 PT STILL ON BEAR HUGGER. O2 IN PLACE. NO S/SX OF DISTRESS NOTED. PT STILL TRYING TO REMOVE LINES AND TUBES. PT REPOSITIONED. SAFETY MEASURES IN PLACE. WILL CONTINUE TO MONITOR.
--- NOTE | 2020-06-26 01:48 | NUR ---
PT ASLEEP. VISIBLE CHEST RISE AND FALL NOTED. O2 IN PLACE. IVF INFUSING WELL. PT KEPT SAFE AND COMFORTABLE. WILL CONTINUE TO MONITOR.
[2020-06-26 04:00] VITALS: BP 106/59
--- NOTE | 2020-06-26 04:27 | NUR ---
VS STABLE. PT IN BED STILL TRYING TO REMOVE LINES AND TUBES. PT REORIENTED. OFFERED WATER, ONLY TOOK SMALL SIPS. BEAR HUGGER KEPT IN PLACE. WILL CONTINUE TO MONITOR.
[2020-06-26 06:01] LABS: BASOPHILS % (AUTO) 0.3 % (0.0-2.0); HEMATOCRIT 32.6 % (36-52); HEMOGLOBIN 10.5 g/dL (12.0-18.0); LYMPHOCYTES # (AUTO) 0.2 K/uL (2.0-11.5); LYMPHOCYTES % (AUTO) 3.5 % (20.5-51.1); MEAN CORPUSCULAR HEMOGLOBIN 30 pg (27-31); MEAN CORPUSCULAR HGB CONC 32 g/dL (33-37); MEAN CORPUSCULAR VOLUME 93.2 fL (80-94); MONOCYTES # (AUTO) 0.9 K/uL (0.8-1.0); MONOCYTES % (AUTO) 12.3 % (1.7-9.3); NEUTROPHILS # (AUTO) 5.9 K/uL (1.8-7.7); NEUTROPHILS % (AUTO) 83.9 % (42.2-75.2); PLATELET COUNT (AUTO) 175 K/uL (140-450); RED BLOOD CELL COUNT(AUTO) 3.49 MIL/uL (4.20-6.10); WHITE BLOOD COUNT (AUTO) 7.1 K/uL (4.8-10.8)
[2020-06-26 06:11] LABS: ANION GAP 12.6 (8-16); CARBON DIOXIDE 31.1 mmol/L (21-32); CHLORIDE 95 mmol/L (98-107); CREATININE 1.8 mg/dL (0.6-1.3); GLUCOSE 78 mg/dL (74-106); POTASSIUM 3.7 mmol/L (3.5-5.1); SODIUM SERUM 135 mmol/L (136-145); UREA NITROGEN, BLOOD 43 mg/dL (7-18)
[2020-06-26] MEDS: PIPERACILLIN/TAZOBACTAM 3.375 GM in DEXTROSE 5% 50 ML IV SCH (06:14)
[2020-06-26 06:19] LABS: MAGNESIUM 1.5 mg/dL (1.8-2.4); PHOSPHORUS 5.6 mg/dL (2.5-4.9)
--- NOTE | 2020-06-26 07:21 | NUR ---
ENDORSED TO DAY SHIFT NURSE FOR CONTINUITY OF CARE
--- NOTE | 2020-06-26 07:25 | NUR ---
RECEIVED PATIENT FROM NIGHT NURSE. PATIENT IN BED AWAKE AND ALERT. ABLE TO IDENTIFY SELF. RESP EVEN AND UNLABORED ON 1L NC, O2SAT 94%. DENIED OF PAIN AT THIS TIME. ADONIS KNIGHT NOTED IN PLACE FOR LOW TEMP. PATIENT CONFUSED AND REQUIRED CONSTANT REDIRECTING. ABLE TO FOLLOW SIMPLE COMMAND. PARKER NOTED IN PLACE. RESTRAINTS NOTED IN PLACE. MULTIPLE OLD SCABS NOTED ON UPPER EXTREMITIES. RFA 20G INFUSING NS 80ML/HR. ASPIRATION PRECAUTION OBSERVED. HOB ELEVATED. CALL LIGHT WITHIN REACH. WILL CONTINUE TO MONITOR.
[2020-06-26] MEDS: NACL 0.9% 1,000 ML IV SCH (07:55)
[2020-06-26 08:00] VITALS: BP 130/59
[2020-06-26] MEDS ORDERED: MAG SULF 2000 MG/WATER PREMIX 50 ML IV SCH (09:00)
[2020-06-26] MEDS: METOPROLOL 25 MG TAB PO SCH ×2 (09:00→21:00)
[2020-06-26] MEDS: FUROSEMIDE 40 MG/4 ML VIAL IVP SCH ×2 (09:04→17:00)
[2020-06-26] MEDS: POTASSIUM CHLORIDE 20% 40 MEQ/15 ML UDC PO SCH (09:04)
[2020-06-26] MEDS: PANTOPRAZOLE 40 MG TABEC PO SCH (09:04)
--- NOTE | 2020-06-26 09:18 | NUR ---
PATIENT IN BED AWAKE AND ALERT. RESPONDING TO NAME. ABLE TO MAKE NEEDS KNOWN. MORNING ROUTINE MEDICATIONS GIVEN WITH APPLESAUCE, PATIENT TOLERATED WELL. LOPRESSOR HELD D/T LOW HR. RESTRAINTS IN PLACE. PARKER NOTED WITH YELLOW URINE. NO NOTED EDEMA AT THIS TIME. CALL LIGHT WITHIN REACH. WILL CONTINUE TO MONITOR.
--- NOTE | 2020-06-26 09:59 | NUR ---
REVIEWED PULMONARY STATUS WITH DR. ANDRES ARTHUR: ABG ON 2 LPM NC; HHN Q6 & Q4 PRN SOB DUONEB; SPUTUM CULTURE
[2020-06-26] MEDS ORDERED: ALBUTEROL SULFATE/IPRATROPIU 3 ML SOL IH PRN (11:00)
--- NOTE | 2020-06-26 11:40 | NUR ---
ATTEMPTED TO SEE PATIENT FOR PHYSICAL THERAPY EVALUATION HOWEVER PATIENT WAS COMBATIVE, UNCOOPERATIVE, AND UNABLE TO BE REDIRECTED. WILL FOLLOW UP TOMORROW IF PATIENT IS APPROPRIATE TO BE SEEN FOR AN EVALUATION; RN AWARE.
--- NOTE | 2020-06-26 11:44 | NUR ---
PATIENT IS IN BED AWAKE ALERT AND COMBATIVE. PATIENT FIGHTING AT THE RESTRAINTS. PATIENT CONFUSED THINKING HE'S BEEN KIDNAPPED. UNABLE TO BE REDIRECTED AND NOT ABLE TO FOLLOW COMMANDS. VITALS WNL, O2SAT 96% ON 2L NC. DR VAUGHN RADIOLOGIST AT BEDSIDE TO PREPARE FOR THORACENTESIS. ATIVAN GIVEN FOR RESTLESSNESS PER DR VAUGHN REQUEST FOR PROCEDURE. WILL CONTINUE TO MONITOR.
[2020-06-26 12:00] VITALS: BP 126/60
--- NOTE | 2020-06-26 12:35 | NUR ---
RIGHT THORACENTESIS WITH DR VAUGHN COMPLETED. 1175ML WITHDRAWN AND SENT TO LAB FOR ANALYSIS. PATIENT SLEEPING IN BED, CHEST NOTED RISING, O2 SAT 92% AT 6L NC. NO NOTED ACUTE S/S DISTRESS. CALL LIGHT WITHIN REACH. WILL CONTINUE TO MONITOR.
[2020-06-26] MEDS: PIPERACILLIN/TAZOBACTAM 2.25 GM in DEXTROSE 5% 50 ML IV SCH ×2 (13:06→18:10)
[2020-06-26] MEDS: ALBUTEROL SULFATE/IPRATROPIU 3 ML SOL IH SCH ×2 (13:43→19:34)
--- NOTE | 2020-06-26 14:24 | NUR ---
PATIENT IN BED SLEEPING, CHEST NOTED RISING. O2SAT 94%. PATIENT NOTED WITH LEG MOVEMENTS. ADONIS HUGGER IN PLACE. 96.3 AXILLARY AT THIS TIME. NO NOTED ACUTE S/S DISTRESS. CALL LIGHT WITHIN REACH. WILL CONTINUE TO MONITOR.
[2020-06-26 15:39] LABS: SPECIMENTYPE,BODY FLUID THORACENTESIS; TOTAL VOLUME,BODY FLUID 1750 mL
[2020-06-26] MEDS ORDERED: NACL 0.9% IV SCH ×2 (15:45→16:40)
--- NOTE | 2020-06-26 15:45 | NUR ---
PATIENT BP IS DROPPING TO 85/[address] LICEA AND RECEIVED TELEPHONE ORDER FOR NS 125ML IV BOLUS X1 NOW. ORDER CARRIED OUT. WILL CONTINUE TO MONITOR.
[2020-06-26 16:00] VITALS: BP 99/42
--- NOTE | 2020-06-26 16:07 | NUR ---
06/26/20 RD INITIAL ASSESSMENT COMPLETED PLEASE REFER TO NUTRITION ASSESSMENT UNDER CARE ACTIVITY FOR ESTIMATED NUTRITIONAL NEEDS. 1. CONTINUE MECHANICAL DIET TOLERATED 2. RECOMMEND ENSURE TID 3. ENCOURAGE PO INTAKE AND PROVIDE ASSISTANCE WITH MEALS 4. CONSULT RD PRN 5. RD TO FOLLOW-UP 2-3 DAYS, HIGH RISK PRITI SUH RD
[2020-06-26] MEDS ORDERED: MIDODRINE 5 MG TAB PO SCH (16:45)
--- NOTE | 2020-06-26 16:45 | NUR ---
BP 78/[address] GARCÍA AT BEDSIDE. GAVE ORDER TO GIVE NS 125ML IV BOLUS X1 NOW. ORDER CARRIED OUT. Addendum: 06/26/20 at 1704 by Fawn Wilhelm RN PATIENT RESPONDED TO STERNAL RUB AND PAIN STIMULI WITH EYE OPENING SPONTANEOUS. PATIENT MOVING LEGS IN BED. WILL CONTINUE TO MONITOR.
[2020-06-26] MEDS: ATORVASTATIN 20 MG TAB PO SCH (17:00)
--- NOTE | 2020-06-26 17:09 | NUR ---
ROUTINE MEDICATIONS HELD D/T LOW PARAMETERS AND PREVENT ASPIRATION. MD AWARE
--- NOTE | 2020-06-26 17:38 | NUR ---
BP 94/47 HR 70 O2SAT 94%. PATIENT IN BED SLEEPING, CHEST NOTED RISING. NO ACUTE S/S DISTRESS. CALL LIGHT WITHIN REACH. WILL CONTINUE TO MONITOR.
--- NOTE | 2020-06-26 19:25 | NUR ---
ENDORSED PATIENT TO NIGHT NURSE. PATIENT IN STABLE CONDITION.
[2020-06-26 20:00] VITALS: BP 100/56
--- NOTE | 2020-06-26 20:12 | NUR ---
FOUND PT DESATURATING. PLACED PT ON NON REBREATHER MASK DUE TO PT HAVING RESTRAINS ON. SPO2 NOT IMPROVING. COMMUNICATED WITH CHARGE NURSE AND PLACED PT ON BiPAP AND REMOVED RESTRAINS OFF. CHARGE WILL GET PT A SITTER IF PT START TO TAKE MASK OFF. WILL CONTINUE TO MONITOR PT.
[2020-06-27] VITALS (38 sets, daily range): BP systolic 65–145; BP diastolic 22–78
--- NOTE | 2020-06-27 | NUR ---
Patient was received from am shift and was being tended by RT and was being switched O2 settings and being put on to BIPAP AT 100% FIO2. Patient was responsive to painful stimuli. Wound care was provided because the skin tear on patient are was actively bleeding. Wound was cleansed with normal saline and covered with and and wrapped. Patient tolerated the procedure well. Patient blood pressure was at 100/56 so 2100 scheduled metroprolol was held due to patient having low BP. When patient vitals were reassessed at vitals were at 71/38 so MD was notified and orders were placed to give patient albumin to increase temperature and transfer patient to ICU for further care. Patient family was called to give an update on patient status but they did not answer and a message was left on Son's voice mail to call hospital for update. Patient was transferred to the ICU for continuity of care.
[2020-06-27] MEDS: PIPERACILLIN/TAZOBACTAM 2.25 GM in DEXTROSE 5% 50 ML IV SCH ×5 (00:14→23:41)
[2020-06-27] MEDS ORDERED: ALBUMIN HUMAN 5 % 500 ML IV SCH (01:00)
[2020-06-27] MEDS: ALBUTEROL SULFATE/IPRATROPIU 3 ML SOL IH SCH ×4 (01:09→19:43)
--- NOTE | 2020-06-27 01:45 | NUR ---
RECEIVED ENDORSEMENT FROM REGISTRY TELE NURSE. PT ANOx0, ON BIPAP FI02 100%. PT AFIB ON MONITOR, HR IN 50's BPM. BLOOD PRESSURE LOW, SKIN COOL TO TOUCH, LOOSE, NOT INTACT, BILATERAL BRUISING NOTED, LARGE OPEN SKIN TEAR TO LEFT FOREARM. RIGHT FA 20G INFUSING ALBUMIN @ 200ML/HR AND NS @ 80ML/HR. BLE EDEMA NOTED, CONDOM CATHETER IN PLACE. BILATERAL SOFT WRIST RESTRAINTS REMOVED, PT NOTED WITH GENERALIZED WEAKNESS. ADONIS HUGGER IN PLACE. BED LOCKED AND IN LOWEST POSITION, SIDE RAILS UP, DROPLET PRECAUTIONS IN PLACE FOR PUI. WILL CONTINUE TO MONITOR.
--- NOTE | 2020-06-27 02:08 | NUR ---
PT BEING TRANSFERRED TO ICU OVERFLOW 128A, CHARGE NURSE AND ALL RT's SUCCESSFULLY TRANSFERRED WITHOUT INCIDENT.
--- NOTE | 2020-06-27 02:11 | NUR ---
PT's SON CALLED AND RECEIVED UPDATE ON CHANGE OF CONDITION AND NOW ICU STATUS. ALL QUESTIONS AND CONCERNS ANSWERED. PT's SON GINA SHUKLA [phone]
--- NOTE | 2020-06-27 02:18 | NUR ---
PT's SON CALLED BACK WITH MORE INFORMATION REGARDING PUTTING PATIENT ON HOSPICE CARE. PT VERY UPSET WITH THE CARE HIS FATHER HAS RECEIVED, ASSURED SON THAT PT IS NOW IN CRITICAL CARE UNIT AND BEING VERY CLOSELY MONITORED. SON IS VOICING CONCERNS ABOUT AMA AND HOSPICE CARE. SON CLARIFIED WILL COME IN THE MORNING TO DISCUSS FURTHER PLAN OF CARE. WILL ENDORSE TO MD AND ABORIGINAL EDUCATION WORKER COORDINATOR.
[2020-06-27] MEDS ORDERED: NOREPINEPHRINE 4 MG/4 ML VIAL IV ONE (02:41)
[2020-06-27] MEDS ORDERED: DEXTROSE 50% 50 ML SYR IVP ONE (03:01)
[2020-06-27] MEDS: DEXTROSE 50% 50 ML SYR IVP PRN (03:05)
--- NOTE | 2020-06-27 03:05 | NUR ---
CHECKED PATIENTS SUGAR, 24, GAVE D50 STAT. PAGED DR. ZULUGAA.
[2020-06-27] MEDS: NOREPINEPHRINE 16 MG in DEXTROSE 5% 250 ML IV PRN (03:25)
--- NOTE | 2020-06-27 03:50 | NUR ---
phone call to dr lynn; updated on pts present condition, made aware that pt received from telemetry unresponsive; blood sugar checked,low 24 d50 administered.pt still non responsive at this time; ordered flumazenil.carried out
[2020-06-27] MEDS ORDERED: FLUMAZENIL 0.5 MG/5 ML VIAL IVP SCH (04:00)
--- NOTE | 2020-06-27 04:42 | NUR ---
PT GIVEN FLUMAZENIL ORDERED, WITHIN 5 MINUTES, PT STARTING TO KICK UP LEGS AND OPEN EYES, UNABLE TO FOLLOW COMMANDS BUT PATIENT IS MOVING AROUND IN BED AND REORIENTED.
--- NOTE | 2020-06-27 04:46 | NUR ---
PHONE CALL MADE TO SON TO MAKE AWARE OF PATIENTS IMPROVED CONDITION AND TO GIVE UPDATE, NO ANSWER, LEFT VOICEMAIL, CALLED AGAIN, STILL NO ANSWER.
--- NOTE | 2020-06-27 05:00 | NUR ---
PT's SON GINA UPDATED ON PT CONDITION.
--- NOTE | 2020-06-27 05:20 | NUR ---
COMPUTER GAME TESTER AT BEDSIDE FOR LAB DRAW, PT IMMEDIATELY PULLED OUT IV WHEN LABS WERE COLLECTING, HAD TO HOLD DOWN PATIENTS ARM FOR LABS. ALL NEEDS MET AT THIS TIME.
[2020-06-27 06:03] LABS: BASOPHILS % (AUTO) 0.2 % (0.0-2.0); HEMATOCRIT 27.3 % (36-52); LYMPHOCYTES # (AUTO) 0.4 K/uL (2.0-11.5); LYMPHOCYTES % (AUTO) 2.5 % (20.5-51.1); MEAN CORPUSCULAR HEMOGLOBIN 30 pg (27-31); MEAN CORPUSCULAR HGB CONC 31 g/dL (33-37); MEAN CORPUSCULAR VOLUME 96.5 fL (80-94); MONOCYTES # (AUTO) 1.7 K/uL (0.8-1.0); MONOCYTES % (AUTO) 11.9 % (1.7-9.3); NEUTROPHILS # (AUTO) 12.2 K/uL (1.8-7.7); NEUTROPHILS % (AUTO) 85.4 % (42.2-75.2); PLATELET COUNT (AUTO) 185 K/uL (140-450); RED BLOOD CELL COUNT(AUTO) 2.83 MIL/uL (4.20-6.10); RED CELL DISTRIBUTION WIDTH 16.5 % (11.6-13.7); WHITE BLOOD COUNT (AUTO) 14.3 K/uL (4.8-10.8)
[2020-06-27 06:22] LABS: CHLORIDE 99 mmol/L (98-107); GLUCOSE 118 mg/dL (74-106); SODIUM SERUM 140 mmol/L (136-145); UREA NITROGEN, BLOOD 53 mg/dL (7-18)
--- NOTE | 2020-06-27 07:30 | NUR ---
RECEIVED REPORT FROM E COMMERCE WEB DEVELOPER. PT ON BIPAP 100% FIO2. RESPIRATION EVEN AND UNLABORED. EYES CLOSED, RESPONSIVE ONLY RO LIGHT PAIN, MOVES EXTREMITIES AT TIMES, UNABLE TO MAKE NEEDS KNOWN, FLACC 0, NO APPARENT DISTRESS. ABDOMEN SOFT, NON TENDER. WITH RAC 20G INFUSING LEVOPHED AT 20MCG/MIN AND NS AT 80CC/HR. ALL LINES ASYMPTOMATIC PATENT AND INTACT. CONDOM CATH IN PLACE, NO OUTPUT NOTED. SIDE RAILS UP, BED IN LOW AND LOCKED POSITIONED. WILL CONTINUE TO MONITOR.
[2020-06-27 07:52] LABS: HEMOGLOBIN 8.4 g/dL (12.0-18.0)
[2020-06-27] MEDS: PANTOPRAZOLE 40 MG INJ VIAL IVP SCH (08:30)
[2020-06-27] MEDS: FUROSEMIDE 40 MG/4 ML VIAL IVP SCH ×2 (09:00→16:43)
[2020-06-27] MEDS: POTASSIUM CHLORIDE 20% 40 MEQ/15 ML UDC PO SCH (09:00)
--- NOTE | 2020-06-27 09:23 | NUR ---
ATTEMPTED TO SEE PATIENT FOR PHYSICAL THERAPY EVALUATION HOWEVER PATIENT HAS STEPPED DOWN AND IS IN ICU OVERFLOW; NEW ORDER TO BE PLACED IF PHYSICAL THERAPY NEEDED.
--- NOTE | 2020-06-27 09:45 | NUR ---
MORNING MEDS GIVEN. LASIX HELD DUE TO LOW BP, PO MEDS HELD DUE TO IMPAIRED SWALLOWING
[2020-06-27] MEDS ORDERED: TPN PER PHARMACY MC PRN (11:15)
[2020-06-27] MEDS ORDERED: ATROPINE 1 MG/10 ML SYR IVP PRN (11:30)
[2020-06-27] MEDS: DEXT 5% /NACL 0.9% 1,000 ML IV SCH ×2 (11:30→20:08)
--- NOTE | 2020-06-27 12:30 | NUR ---
PICC LINE INSERTED, CONFIRMED BY CXR
[2020-06-27] MEDS: BLOOD GLUCOSE MONITORING 1 DEV DEV FS SCH ×2 (16:42→20:08)
[2020-06-27] MEDS: ATORVASTATIN 20 MG TAB PO SCH (16:43)
--- NOTE | 2020-06-27 18:00 | NUR ---
PT MORE RESPONSIVE. OPEN EYES SPONTANEOUSLY. MOVES EXTREMITIES MORE FREQUENTLY
--- NOTE | 2020-06-27 18:56 | NUR ---
RESPONDED TO BiPAP ALARM. NOTICED PT TOOK OFF HIS MASK. NO INCREASED IN WORK OF BREATHING AT THIS TIME. PLACED PT IN NON REBREATHER 15L AND SOP2 INCREASED TO 100%. RN NOTIFIED. WILL CONTINUE TO MONITOR PT.
[2020-06-27 19:08] LABS: GLUCOSE,BODY FLUID 84 mg/dL; LDH,BODY FLUID 52 U/L
--- NOTE | 2020-06-27 19:30 | NUR ---
RECEIVED BEDSIDE REPORT FROM DAY RN. PT WAS RECENTLY REMOVED FROM BIPAP NOW ON NRB 15L SAT WELL 89-95% RESPIRATION EVEN AND UNLABORED. PATIENT IS AAOX0. VERY CONFUSED TRYING TO GET OUT OF BED AND PULLING ON PARKER. PT PLACED ON ROSA MARIA WRIST SOFT RESTRAINTS. ABDOMEN SOFT, NON TENDER. WITH RAC 20G SL JAYLYN PICC DOUBLE LUMEN INFUSING LEVOPHED AT 20MCG/MIN AND D5NS AT 80CC/HR. PARKER WITH MINIMAL YELOW UO NOTED. PT HX PENILE PROSTATE. ALL LINES ASYMPTOMATIC PATENT AND INTACT. SIDE RAILS UP, BED IN LOW AND LOCKED POSITIONED. ON STANDARD ISOLATION. POC REVIEWED WITH PT. PT UNABLE TO COMPREHEND. WILL CONTINUE TO MONITOR.
--- NOTE | 2020-06-27 19:50 | NUR ---
HHN TX GIVEN TO PT. PT TOLERATED TX WELL WITH NO ADVERSE REACTIONS. PT PLACED BACK ON NON REBREATHER MASK @15L. SPO2 95%. WILL CONTINUE TO MONITOR PT.
--- NOTE | 2020-06-27 20:08 | NUR ---
BLOOD SUGAR 153 ADMIN INSULIN PER SLIDING SCALE. PT STARTED ON TPN AT 60ML/H. PT REMAINS CONFUSED ATTEMPTING TO GET OUT OF BED. ORIENTED PT. SAFETY MEASURES ARE IN PLACE.
[2020-06-27] MEDS: INSULIN LISPRO SLIDING SCALE 100 UNITS/ML VIAL SUBQ PRN (20:26)
[2020-06-27] MEDS: DEXTROSE 50% 720 ML, AMINO ACIDS 8.5% 720 ML IV SCH ×2 (20:28)
--- NOTE | 2020-06-27 21:00 | NUR ---
PATIENTS SON IS AT WINDOW SIDE. ALL SAFETY MEASURES ARE IN PLACE.
--- NOTE | 2020-06-27 22:35 | NUR ---
RN FOUND PT IN BED WITH NON REBREATHER MASK OFF AND SPO2 IN 40s. PT HAS A PULSE. WENT TO BEDSIDE AND PLACED PT ON BiPAP SETTINGS AVAPS 450, EPAP 10, BACK RR 20, FiO2 100%. SPO2 IMPROVED TO 100% IN 2MINS. RESTRAINS OFF FROM PT HANDS AT THIS TIME. RN AT BEDSIDE. WILL CONTINUE TO MONITOR PT.
[2020-06-28] VITALS (24 sets, daily range): BP systolic 104–143; BP diastolic 54–82
[2020-06-28] MEDS: ALBUTEROL SULFATE/IPRATROPIU 3 ML SOL IH SCH ×4 (00:10→20:21)
--- NOTE | 2020-06-28 00:15 | NUR ---
RN REPORTED THAT PT KEEPS TAKING OFF BiPAP MASK. SWITCHED PT TO OXYMIZER 13L. SPO2 92 TO 95% AT THIS TIME. RN NOTIFIED. WILL CONTINUE TO MONITOR PT.
--- NOTE | 2020-06-28 00:30 | NUR ---
PT NOW ON OXIMIZER 13L SAT WELL 94%. PT ASKING FOR WATER WET MOUTH WITH SPONGE. PT TOLERATED. ALL NEEDS MET. SAFETY MEASURES ARE IN PLACE. WILL CONTINUE TO MONITOR.
--- NOTE | 2020-06-28 01:58 | NUR ---
PT STATES, "TENGO FRIO" I AM COLD IN TAJIK PT WITH 2 BLANKETS ADONIS HUGGER AT BEDSIDE APPLIED. PT RESTING COMFORTABLY. WILL CONTINUE TO MONITOR.
--- NOTE | 2020-06-28 04:00 | NUR ---
VITAL ARE STABLE PT ON LEVO AT 16MCG/MIN BP 121/60 HR 75. PT AWAKE RESTING IN BED STILL CONFUSED ATTEMPTING TO REMOVE LINES. REORIENTED PT TO ROOM AND STAFF. ROSA MARIA SOFT WRIST RESTRAINTS STILL IN PLACE. SAFETY MEASURES ARE IN PLACE
[2020-06-28] MEDS: PIPERACILLIN/TAZOBACTAM 2.25 GM in DEXTROSE 5% 50 ML IV SCH ×4 (05:02→23:18)
[2020-06-28] MEDS: PANTOPRAZOLE 40 MG INJ VIAL IVP SCH (06:18)
[2020-06-28] MEDS: BLOOD GLUCOSE MONITORING 1 DEV DEV FS SCH ×4 (06:19→23:18)
[2020-06-28] MEDS: INSULIN LISPRO SLIDING SCALE 100 UNITS/ML VIAL SUBQ PRN ×2 (06:20→11:58)
--- NOTE | 2020-06-28 06:20 | NUR ---
BLOOD SUGAR 240 ADMIN INSULIN PER SLIDING SCALE. PT RESTING IN BED IS EASILY AROUSABLE TO NAME. PT REMAINS ON OXIMIZER 13L SAT WELL 99%. PT WAS CLEANED AND REPOSITION FOR COMFORT. ALL SAFETY MEASURES ARE IN PLACE. WILL CONTINUE TO MONITOR.
[2020-06-28 06:25] LABS: MAGNESIUM 2.3 mg/dL (1.8-2.4); PHOSPHORUS 8.4 mg/dL (2.5-4.9)
[2020-06-28 06:30] LABS: BASOPHILS % (AUTO) 0.2 % (0.0-2.0); HEMATOCRIT 22.9 % (36-52); LYMPHOCYTES # (AUTO) 0.3 K/uL (2.0-11.5); LYMPHOCYTES % (AUTO) 2.4 % (20.5-51.1); MEAN CORPUSCULAR HEMOGLOBIN 29 pg (27-31); MEAN CORPUSCULAR HGB CONC 31 g/dL (33-37); MEAN CORPUSCULAR VOLUME 95.4 fL (80-94); MONOCYTES # (AUTO) 1.2 K/uL (0.8-1.0); NEUTROPHILS % (AUTO) 87.4 % (42.2-75.2); PLATELET COUNT (AUTO) 147 K/uL (140-450); RED CELL DISTRIBUTION WIDTH 16.2 % (11.6-13.7); WHITE BLOOD COUNT (AUTO) 11.5 K/uL (4.8-10.8)
[2020-06-28] MEDS: NOREPINEPHRINE 16 MG in DEXTROSE 5% 250 ML IV PRN (06:41)
--- NOTE | 2020-06-28 07:25 | NUR ---
GAVE BEDSIDE REPORT TO DAY RN. PT ENDORSED IN STABLE CONDITION.
--- NOTE | 2020-06-28 08:25 | NUR ---
DR LICEA ROUNDING ON PATIENT AT THIS TIME. PER DR LICEA, DISCONTINUE D5W NOW THAT PATIENT IS ON TPN.
--- NOTE | 2020-06-28 08:30 | NUR ---
DR WHIPPLE ROUNDING ON PATIENT AT THIS TIME. PER DR WHIPPLE, ADMINISTER LASIX TODAY AND DECREASE TPN TO 40 ML/HR.
[2020-06-28] MEDS: FUROSEMIDE 40 MG/4 ML VIAL IVP SCH ×2 (09:10→16:55)
[2020-06-28] MEDS: POTASSIUM CHLORIDE 20% 40 MEQ/15 ML UDC PO SCH (09:10)
--- NOTE | 2020-06-28 09:10 | NUR ---
ADMINISTERED SCHEDULED MEDS PER MD ORDER. PER DR WHIPPLE, ADMINISTER ORDERED LASIX, CONTROL BP WITH BP SUPPORT MEDS. MED EDUCATION PROVIDED, REINFORCEMENT NEEDED. MORNING HYGIENE PROVIDED: ORAL CARE, CHG BATH, CATHETER CARE, CHANGED ALL DIRTY LINEN. PATIENT HELPED REPOSITION AND OFFLOADED PRESSURE WITH PILLOWS. SPRINKLER FITTER APPRENTICE IN PLACE. SAFETY MEASURES IN PLACE.
[2020-06-28 09:37] LABS: ANION GAP 22.3 (8-16); CARBON DIOXIDE 22.4 mmol/L (21-32); CHLORIDE 96 mmol/L (98-107); CREATININE 3.7 mg/dL (0.6-1.3); GLUCOSE 237 mg/dL (74-106); POTASSIUM 4.7 mmol/L (3.5-5.1); SODIUM SERUM 136 mmol/L (136-145)
[2020-06-28 09:39] LABS: UREA NITROGEN, BLOOD 67 mg/dL (7-18)
--- NOTE | 2020-06-28 10:49 | NUR ---
DR SEARS ROUNDING ON PATIENT AT BEDSIDE. PER DR SEARS OK TO ADMINISTER LASIX ORDERED AND REDUCE TPN FROM 60 ML/HR TO 40 ML/HR PER DR WHIPPLE RECOMMENDATIONS.
--- NOTE | 2020-06-28 16:45 | NUR ---
2 RD FOLLOW UP COMPLETED PLEASE REFER TO NUTRITION ASSESSMENT UNDER CARE ACTIVITY FOR ESTIMATED NUTRITIONAL NEEDS. 1.CURRENT TPN D12.5%, TRAVADOL 3.25%, LIPIDS 10% 100 ML @ 40 ML/HR, REGIMEN PROVIDES 632 KCAL AND 31 GM OF PROTEIN, MEETING 32% OF KCAL AND 40% OF PROTEIN 2. CONSIDER SWALLOW EVALUATION IF MENTATION IMPROVES FOR PO INTAKE OR CONSIDER ENTERAL FEEDINGS 3. CONSULT RD PRN FOR ANY CHANGES 4. RD TO FOLLOW-UP 2-3 DAYS, HIGH RISK PRITI SUH RD
[2020-06-28] MEDS: ATORVASTATIN 20 MG TAB PO SCH (16:55)
[2020-06-28] MEDS: DEXTROSE 50% 720 ML, AMINO ACIDS 8.5% 720 ML IV SCH ×2 (20:00)
--- NOTE | 2020-06-28 20:00 | NUR ---
RECEIVED REPORT FROM DAY SHIFT RN. PT IS ALERT AND ORIENTED X 1-2. ON OXIMIZER @ 8L/MIN. RESPIRATION EVEN, UNLABORED BUT TACHYPNEIC. ORAL MUCOSA PINK AND MOIST. SKIN WARM AND DRY. PICC LINE ACCESS ON THE LEFT UPPER ARM INFUSING LEVOPHED 14MCG/MIN AND TPN INFUSING ORDERED. RIGHT FA 20. ALL LINES ASYMPTOMATIC, PATENT AND INTACT. PT ON BILATERAL SOFT WRIST RESTRAINTS. NPO. PARKER CATHETER INTACT AND PATENT DRAINING TO GRAVITY. SAFETY MEASURES IN PLACE. BED IN LOW AND LOCKED POSITION. STANDARD PRECAUTIONS MAINTAINED. WILL CONTINUE TO MONITOR.
[2020-06-28] MEDS: FAT EMULSION 20% IV SCH ×3 (20:23)
[2020-06-28] MEDS: AMINO ACIDS 8.5% IV SCH ×3 (20:23)
[2020-06-28] MEDS: DEXTROSE 50% IV SCH ×3 (20:23)
--- NOTE | 2020-06-28 20:25 | NUR ---
HHN TX GIVEN TO PT AND PT TOLERATED WELL WITHOUT ANY ADVERSE REACTION. PLACED PT BACK ON OXYMIZER 8L. SPO2 96%. PT IS IN NO APPARENT RESPIRATORY DISTRESS AT THIS TIME. WILL CONTINUE TO MONITOR PT.
[2020-06-29] VITALS (28 sets, daily range): BP systolic 85–145; BP diastolic 24–77
--- NOTE | 2020-06-29 | NUR ---
PT DENIES ANY PAIN. NO CONCERN AND COMPLAINTS VOICED. TURNED AND REPOSITIONED. PRESSURE AREAS OFF LOADED. WILL CONTINUE TO MONITOR.
[2020-06-29] MEDS: ALBUTEROL SULFATE/IPRATROPIU 3 ML SOL IH SCH ×3 (00:40→14:13)
--- NOTE | 2020-06-29 00:43 | NUR ---
HHN TX GIVEN TO PT AND PT TOLERATED WELL WITHOUT ANY ADVERSE REACTION. PLACED PT BACK ON OXYMIZER 8L. SPO2 95%. NO APPARENT RESPIRATORY DISTRESS NOTED AT THIS TIME. WILL CONTINUE TO MONITOR PT.
--- NOTE | 2020-06-29 02:00 | NUR ---
PT WAS TURNED AND REPOSITIONED. PRESSURE AREAS OFFLOADED. COMPLAINTS THAT HE IS COLD. WARMING BLANKET PROVIDED. WILL CONTINUE TO MONITOR.
[2020-06-29] MEDS: NOREPINEPHRINE 16 MG in DEXTROSE 5% 250 ML IV PRN (03:42)
--- NOTE | 2020-06-29 04:00 | NUR ---
MORNING CARE PROVIDED. NO DISTRESS NOTED. WILL CONTINUE TO MONITOR.
[2020-06-29] MEDS: PIPERACILLIN/TAZOBACTAM 2.25 GM in DEXTROSE 5% 50 ML IV SCH ×3 (05:10→18:55)
--- NOTE | 2020-06-29 05:20 | NUR ---
CALLED TO BEDSIDE DUE TO PT DESATURATION. RN AT BEDSIDE INCREASED O2 TO 15L. AT BEDSIDE PT ASSESSED AND SPO2 CHANGED. SPO2 94% ON 15L OXYMIZER. WILL CONTINUE TO MONITOR PT.
[2020-06-29] MEDS: BLOOD GLUCOSE MONITORING 1 DEV DEV FS SCH ×3 (05:25→18:54)
[2020-06-29] MEDS: PANTOPRAZOLE 40 MG INJ VIAL IVP SCH (05:26)
--- NOTE | 2020-06-29 05:32 | NUR ---
OXYGEN SATURATION ON THE 70'S. RT MADE AWARE. INCREASED O2 TO 15L VIA OXIMIZER. O2 SATS WENT UP TO 90'S. WILL CONTINUE TO MONITOR.
[2020-06-29 06:14] LABS: BASOPHILS % (AUTO) 0.3 % (0.0-2.0); EOSINOPHILS % (AUTO) 0.1 % (0.0-4.0); HEMATOCRIT 23.3 % (36-52); HEMOGLOBIN 7.4 g/dL (12.0-18.0); LYMPHOCYTES # (AUTO) 0.3 K/uL (2.0-11.5); LYMPHOCYTES % (AUTO) 2.7 % (20.5-51.1); MEAN CORPUSCULAR HEMOGLOBIN 30 pg (27-31); MEAN CORPUSCULAR HGB CONC 32 g/dL (33-37); MEAN CORPUSCULAR VOLUME 93.6 fL (80-94); MONOCYTES # (AUTO) 1.2 K/uL (0.8-1.0); MONOCYTES % (AUTO) 9.9 % (1.7-9.3); NEUTROPHILS # (AUTO) 10.8 K/uL (1.8-7.7); PLATELET COUNT (AUTO) 127 K/uL (140-450); RED BLOOD CELL COUNT(AUTO) 2.49 MIL/uL (4.20-6.10); RED CELL DISTRIBUTION WIDTH 16.1 % (11.6-13.7); WHITE BLOOD COUNT (AUTO) 12.4 K/uL (4.8-10.8)
[2020-06-29 06:28] LABS: ALBUMIN 2.6 g/dL (3.4-5.0); ANION GAP 20.6 (8-16); ASPARTATE AMINOTRANSFERASE 94 U/L (15-37); CARBON DIOXIDE 23.6 mmol/L (21-32); CHLORIDE 95 mmol/L (98-107); GLUCOSE 180 mg/dL (74-106); MAGNESIUM 2.3 mg/dL (1.8-2.4); PHOSPHORUS 7.2 mg/dL (2.5-4.9); POTASSIUM 5.2 mmol/L (3.5-5.1); SODIUM SERUM 134 mmol/L (136-145); TOTAL BILIRUBIN 0.8 mg/dL (0.0-1.0)
--- NOTE | 2020-06-29 07:15 | NUR ---
RECEIVED BEDSIDE REPORT FROM VIDEOGAME TESTER NURSE. PATIENT IN BED, SUPINE, AWAKENS AND RESPONDS TO NAME. ON 15 L OXIMIZER, BREATHING EVEN AND UNLABORED, NO SIGNS OF ACUTE DISTRESS NOTED. PARKER CATHETER IN PLACE, DRAINING TO GRAVITY, ROSA MARIA SOFT WRIST RESTRAINS IN PLACE, NO SIGNS OF INJURY NOTED. FEEDING RUNNING TPN @ 40 ML/HH. RFA 20, JAYLYN PICC INFUSING: LEVOPHED @ 2MCG/MIN. PELT SHEARER IN PLACE, SAFETY MEASURES IN PLACE.
[2020-06-29 08:13] LABS: CREATININE 4.2 mg/dL (0.6-1.3); UREA NITROGEN, BLOOD 78 mg/dL (7-18)
--- NOTE | 2020-06-29 09:50 | NUR ---
PT PLACED ON BIPAP DUE TO TACHYPNEA AND LOW SPO2. NURSE MADE AWARE, WILL CONTINUE TO MONITOR. BIPAP SETTINGS AVAPS 20, VT450, EPAP [id number] AND FIO2 100%. BIPAP ALARMS ON AND FUNCTIONING.
[2020-06-29] MEDS ORDERED: FUROSEMIDE 100 MG/10 ML VIAL IVP SCH (10:00)
[2020-06-29] MEDS ORDERED: FUROSEMIDE 100 MG/10 ML VIAL IV SCH (11:00)
[2020-06-29] MEDS ORDERED: FUROSEMIDE 100 MG in DEXTROSE 5% 100 ML IV SCH (12:00)
--- NOTE | 2020-06-29 13:00 | NUR ---
PATIENT DESATING ON BIPAP, SPO2 READINGS IN THE 60, 70, 80%. Called Dr Shea, per Dr Shea, draw ABG. Patient is DNI.
--- NOTE | 2020-06-29 14:15 | NUR ---
ABGS ORDERED DUE TO PATIENT SPO2 <90% THROUGHOUT SHIFT. pH 7.218, pCO2 55.8, pO2 200.6, HCO3 22.2. DR LICEA CONTACTED WITH RESULTS. PATIENT IS DNI. SEE RT NOTES FOR NEW ORDERS RECEIVED.
--- NOTE | 2020-06-29 14:26 | NUR ---
ABG RESULTS GIVEN TO PHYSICIAN STATES TO INCREASE SET RATE TO 24. SPO2 PULSE OX NOT CORRELATING TO ABG RESULTS. NURSE MADE AWARE. WILL CONTINUE TO MONITOR.
[2020-06-29] MEDS: ATORVASTATIN 20 MG TAB PO SCH (17:36)
[2020-06-29] MEDS: FAT EMULSION 20% IV SCH ×6 (20:00)
[2020-06-29] MEDS: AMINO ACIDS 8.5% IV SCH ×6 (20:00)
[2020-06-29] MEDS: DEXTROSE 50% IV SCH ×6 (20:00)
--- NOTE | 2020-06-29 20:00 | NUR ---
RECEIVED REPORT FROM DAY SHIFT RN. PT IS ALERT WITH INTERMITTENT CONFUSION. ON BIPAP @ 100% FIO2. RESPIRATION EVEN AND UNLABORED. ORAL MUCOSA PINK AND MOIST. SKIN WARM AND DRY. SKIN TEAR ON THE LEFT FOREARM, SCATTERED BRUISING TO EXTREMITIES. PICC LINE ACCESS ON THE LEFT UPPER ARM INFUSING LEVOPHED 2 MCG/MIN AND TPN INFUSING AT 40MLS/HR. RIGHT FA 20. ALL LINES ASYMPTOMATIC, PATENT AND INTACT. PT ON BILATERAL SOFT WRIST RESTRAINTS. NPO. PARKER CATHETER INTACT AND PATENT DRAINING TO GRAVITY. SAFETY MEASURES IN PLACE. BED IN LOW AND LOCKED POSITION. STANDARD PRECAUTIONS MAINTAINED. WILL CONTINUE TO MONITOR.
[2020-06-30] VITALS (38 sets, daily range): BP systolic 81–183; BP diastolic 21–127
--- NOTE | 2020-06-30 | NUR ---
PT WAS TURNED AND REPOSITIONED. PRESSURE AREAS OFF LOADED. NO DISTRESS NOTED.
[2020-06-30] MEDS: BLOOD GLUCOSE MONITORING 1 DEV DEV FS SCH ×5 (00:37→23:34)
[2020-06-30] MEDS: PIPERACILLIN/TAZOBACTAM 2.25 GM in DEXTROSE 5% 50 ML IV SCH ×5 (00:37→23:34)
[2020-06-30] MEDS: DEXTROSE 50% 50 ML SYR IVP PRN (05:45)
--- NOTE | 2020-06-30 05:45 | NUR ---
BS-47, D50 ABBOJECT GIVEN ORDERED. WILL RECHECK BS LATER.
[2020-06-30] MEDS: PANTOPRAZOLE 40 MG INJ VIAL IVP SCH (06:15)
--- NOTE | 2020-06-30 06:18 | NUR ---
LATEST BLOOD SUGAR: 256. WILL CONTINUE TO MONITOR.
[2020-06-30 06:28] LABS: ALBUMIN 2.2 g/dL (3.4-5.0); ANION GAP 18.3 (8-16); ASPARTATE AMINOTRANSFERASE 80 U/L (15-37); CHLORIDE 95 mmol/L (98-107); GLUCOSE 180 mg/dL (74-106); MAGNESIUM 2.1 mg/dL (1.8-2.4); PHOSPHORUS 6.8 mg/dL (2.5-4.9); POTASSIUM 5.3 mmol/L (3.5-5.1); SODIUM SERUM 131 mmol/L (136-145); TOTAL BILIRUBIN 0.8 mg/dL (0.0-1.0)
--- NOTE | 2020-06-30 06:40 | NUR ---
PICC LINE DRESSING CHANGED.
[2020-06-30 06:48] LABS: BASOPHILS # (AUTO) 0.1 K/uL (0.00-0.22); BASOPHILS % (AUTO) 0.6 % (0.0-2.0); EOSINOPHILS % (AUTO) 0.1 % (0.0-4.0); HEMOGLOBIN 7.2 g/dL (12.0-18.0); LYMPHOCYTES # (AUTO) 0.2 K/uL (2.0-11.5); LYMPHOCYTES % (AUTO) 2.3 % (20.5-51.1); MEAN CORPUSCULAR HEMOGLOBIN 31 pg (27-31); MEAN CORPUSCULAR HGB CONC 33 g/dL (33-37); MEAN CORPUSCULAR VOLUME 93.7 fL (80-94); MONOCYTES # (AUTO) 0.9 K/uL (0.8-1.0); MONOCYTES % (AUTO) 9.1 % (1.7-9.3); NEUTROPHILS % (AUTO) 87.9 % (42.2-75.2); PLATELET COUNT (AUTO) 91 K/uL (140-450); RED BLOOD CELL COUNT(AUTO) 2.35 MIL/uL (4.20-6.10); WHITE BLOOD COUNT (AUTO) 10.3 K/uL (4.8-10.8)
[2020-06-30 06:55] LABS: UREA NITROGEN, BLOOD 92 mg/dL (7-18)
[2020-06-30 06:56] LABS: CREATININE 4.8 mg/dL (0.6-1.3)
--- NOTE | 2020-06-30 06:59 | NUR ---
RECEIVED PT ON BIPAP SETTINGS AVAPS 24, VT450, EPAP 10 AND FIO2 100%. PT ASLEEP BUT DOES OPEN EYES WHEN SPOKEN TO. ALARMS ON AND FUNCTIONING. WILL CONTINUE TO MONITOR.
[2020-06-30] MEDS: ALBUTEROL SULFATE/IPRATROPIU 3 ML SOL IH SCH (07:00)
--- NOTE | 2020-06-30 07:07 | NUR ---
UPDATED DR. WHIPPLE ABOUT PT'S CONDITION. AWARE ABOUT PT BEING ANURIC ALL NIGHT. REPORTED ABOUT CRITICAL LABS. SEE CRITICAL LABS DOCUMENTATION FOR MORE DETAILS. SHE STATED PT NOT A CANDIDATE FOR DIALYSIS AND STOP LASIX AND KCL, NO K+ TO TPN. WILL CONTINUE TO MONITOR.
--- NOTE | 2020-06-30 07:20 | NUR ---
RECEIVED BEDSIDE REPORT FROM SSDS MK 2 ADVANCED OPERATOR NURSE. PATIENT IN BED SUPINE, HOB 30 DEGREES ON BIPAP FIO2 100%, SPOT2 88%. ROSA MARIA SOFT WRIST RESTRAINTS IN PLACE, NO SIGNS OF INJURY NOTED. PARKER CATHETER DRAINING TO GRAVITY. JAYLYN PICC LINE, RFA 20G INFUSING TPN @ 40 ML/HR. COMPOSITION INSTRUCTOR IN PLACE, SAFETY MEASURES IN PLACE.
[2020-06-30] MEDS: INSULIN LISPRO SLIDING SCALE 100 UNITS/ML VIAL SUBQ PRN (12:00)
--- NOTE | 2020-06-30 13:00 | NUR ---
SPOKE TO PHARMACIST FOR CLARIFICATION OF DOPAMINE DRIP ORDERED. PER DR PHILLIPS, DOPAMINE TO BE TITRATE UP TO 5 MCG/KG/MIN. NO HIGHER THAN 5 MC/KG/MIN.
[2020-06-30] MEDS ORDERED: SODIUM ZIRCONIUM CYCLOSILICATE 10 GM POWD.PACK PO ONE (13:05)
[2020-06-30] MEDS ORDERED: SODIUM POLYSTYRENE 15 GM/60 ML UDBTL PO SCH (13:14)
[2020-06-30] MEDS: DOPamine 400 MG/D5W PREMIX 250 ML IV PRN (15:44)
[2020-06-30] MEDS ORDERED: SODIUM POLYSTYRENE 15 GM/60 ML UDBTL PR SCH (16:15)
[2020-06-30] MEDS: ATORVASTATIN 20 MG TAB PO SCH (17:23)
[2020-06-30] MEDS: FUROSEMIDE 100 MG in DEXTROSE 5% 100 ML IV SCH (17:32)
--- NOTE | 2020-06-30 18:45 | NUR ---
KAYEXALATE ADMINISTERED RECTALLY, PATIENT UNABLE TO TAKE ORAL SOLUTION. MED EDUCATION PROVIDED, REINFORCEMENT NEEDED. FRUIT TESTER IN PLACE. SAFETY MEASURES IN PLACE.
--- NOTE | 2020-06-30 19:30 | NUR ---
PATIENT ENDORSED TO PRESS OPERATOR ASSISTANT NURSE FOR CONTINUITY OF CARE PATIENT STABLE AT THIS TIME. ENDORSED TO INFORM DAYSHIFT NURSE THAT DOPAMINE DRIP CAN ONLY BE TITRATED UP TO 5 MCG/KG/MIN MAX, NO HIGHER.
--- NOTE | 2020-06-30 20:00 | NUR ---
RECEIVED REPORT FROM DAY SHIFT RN. PT IS ALERT WITH INTERMITTENT CONFUSION. ON BIPAP @ 70% FIO2. RESPIRATION EVEN AND UNLABORED. ORAL MUCOSA PINK AND MOIST. SKIN WARM AND DRY. SKIN TEAR ON THE LEFT FOREARM, SCATTERED BRUISING TO EXTREMITIES. PICC LINE ACCESS ON THE LEFT UPPER ARM INFUSING. TPN INFUSING AT 40MLS/HR, DOPAMINE DRIP @ 3 MCG/KG/MIN. PER REPORT DOPAMINE DRIP CAN ONLY BE TITRATED FROM 1 -5 MCG/KG/MIN PER DR. OLIVA. RIGHT FA 20. ALL LINES ASYMPTOMATIC, PATENT AND INTACT. PARKER CATHETER INTACT. PT OLIGURIC. SAFETY MEASURES IN PLACE. BED IN LOW AND LOCKED POSITION. STANDARD PRECAUTIONS MAINTAINED. WILL CONTINUE TO MONITOR.
[2020-06-30] MEDS: FAT EMULSION 20% IV SCH ×3 (20:29)
[2020-06-30] MEDS: AMINO ACIDS 8.5% IV SCH ×3 (20:29)
[2020-06-30] MEDS: DEXTROSE 50% IV SCH ×3 (20:29)
[2020-07-01] VITALS (33 sets, daily range): BP systolic 58–155; BP diastolic 18–98
--- NOTE | 2020-07-01 | NUR ---
TURNED AND REPOSITIONED. PRESSURE AREAS OFF LOADED. WILL CONTINUE TO MONITOR.
[2020-07-01] MEDS: ALBUTEROL SULFATE/IPRATROPIU 3 ML SOL IH SCH ×4 (01:00→19:48)
[2020-07-01] MEDS: FUROSEMIDE 100 MG in DEXTROSE 5% 100 ML IV SCH ×2 (02:45→14:25)
--- NOTE | 2020-07-01 04:00 | NUR ---
MORNING CARE PROVIDED. NO DISTRESS OBSERVED. WILL CONTINUE TO MONITOR.
[2020-07-01 06:05] LABS: BASOPHILS % (AUTO) 0.3 % (0.0-2.0); EOSINOPHILS % (AUTO) 0.1 % (0.0-4.0); HEMATOCRIT 24.5 % (36-52); LYMPHOCYTES # (AUTO) 0.3 K/uL (2.0-11.5); LYMPHOCYTES % (AUTO) 2.7 % (20.5-51.1); MEAN CORPUSCULAR HEMOGLOBIN 30 pg (27-31); MEAN CORPUSCULAR HGB CONC 33 g/dL (33-37); MEAN CORPUSCULAR VOLUME 92.9 fL (80-94); MONOCYTES # (AUTO) 1.1 K/uL (0.8-1.0); MONOCYTES % (AUTO) 10.8 % (1.7-9.3); NEUTROPHILS # (AUTO) 8.7 K/uL (1.8-7.7); NEUTROPHILS % (AUTO) 86.1 % (42.2-75.2); PLATELET COUNT (AUTO) 104 K/uL (140-450); RED BLOOD CELL COUNT(AUTO) 2.64 MIL/uL (4.20-6.10); WHITE BLOOD COUNT (AUTO) 10.1 K/uL (4.8-10.8)
[2020-07-01] MEDS: BLOOD GLUCOSE MONITORING 1 DEV DEV FS SCH ×3 (06:11→18:02)
[2020-07-01] MEDS: PANTOPRAZOLE 40 MG INJ VIAL IVP SCH (06:11)
[2020-07-01 06:18] LABS: ANION GAP 22.1 (8-16); CARBON DIOXIDE 21.9 mmol/L (21-32); CHLORIDE 94 mmol/L (98-107); GLUCOSE 123 mg/dL (74-106); SODIUM SERUM 133 mmol/L (136-145)
[2020-07-01 07:18] LABS: CREATININE 5.1 mg/dL (0.6-1.3); UREA NITROGEN, BLOOD 99 mg/dL (7-18)
--- NOTE | 2020-07-01 07:35 | NUR ---
RECEIVED REPORT FROM WIND PLANT MANAGER. PT ON BIPAP 75% FIO2. RESPIRATION EVEN AND UNLABORED. AOX1, WITH INTERMITTENT CONFUSION. ATTEMPTS TO TAKE OFF BIPAP AT TIMES. FLACC 0, NO APPARENT DISTRESS. ABDOMEN SOFT, NON TENDER. WITH RAC 20G AND JAYLYN PICC INFUSING DOPAMINE AT 3MCG, LASIX AT 10MGG/HR, TPN AT 40CC/HR. ALL LINES ASYMPTOMATIC PATENT AND INTACT. PARKER CATH IN PLACE, NO OUTPUT NOTED. SIDE RAILS UP, BED IN LOW AND LOCKED POSITIONED. WILL CONTINUE TO MONITOR.
--- NOTE | 2020-07-01 07:36 | NUR ---
ENDORSED PT TO DAY SHIFT RN FOR CONTINUITY OF CARE.
[2020-07-01 08:30] LABS: ALBUMIN 2.5 g/dL (3.4-5.0); ANION GAP 22.7 (8-16); ASPARTATE AMINOTRANSFERASE 105 U/L (15-37); CARBON DIOXIDE 22.4 mmol/L (21-32); CHLORIDE 93 mmol/L (98-107); GLUCOSE 129 mg/dL (74-106); MAGNESIUM 2.3 mg/dL (1.8-2.4); PHOSPHORUS 6.6 mg/dL (2.5-4.9); POTASSIUM 5.1 mmol/L (3.5-5.1); SODIUM SERUM 133 mmol/L (136-145); TOTAL BILIRUBIN 1.1 mg/dL (0.0-1.0)
--- NOTE | 2020-07-01 08:50 | NUR ---
SEEN BY DR BELL, NO NEW ORDERS
[2020-07-01 09:22] LABS: CREATININE 5.1 mg/dL (0.6-1.3); UREA NITROGEN, BLOOD 103 mg/dL (7-18)
--- NOTE | 2020-07-01 09:40 | NUR ---
PARKER CARE AND JASON CARE DONE. REPOSITIONED PT
--- NOTE | 2020-07-01 13:45 | NUR ---
SEEN BY DR MAYO
--- NOTE | 2020-07-01 14:32 | NUR ---
07/01/20 RD FOLLOW UP COMPLETED PLEASE REFER TO NUTRITION PROGRESS NOTE UNDER CARE ACTIVITY FOR ESTIMATED NUTRITION NEEDS. RD RECOMMENDATIONS: 1.CONTINUE WITH CURRENT TPN D15%, AA3.25%, LIPIDS 10% 100 ML @ 40 ML/HR, REGIMEN PROVIDES 693 KCAL AND 31 GM OF PROTEIN, MEETING 43% OF KCAL AND 41% OF PROTEIN 2. CONSIDER SWALLOW EVALUATION IF MENTATION IMPROVES FOR PO INTAKE OR CONSIDER ENTERAL FEEDINGS 3. CONSULT RD PRN FOR ANY CHANGES 4. RD TO FOLLOW-UP 2-3 DAYS, HIGH RISK CHRIS NAVAS MBA, RD
[2020-07-01] MEDS: ATORVASTATIN 20 MG TAB PO SCH (17:00)
--- NOTE | 2020-07-01 17:00 | NUR ---
BP 58/38 HR 38, RESTARTED LEVOPHED AT 12MCG, TITRATED DOPAMINE TO 5 MCG
--- NOTE | 2020-07-01 17:15 | NUR ---
BP 142/72 HR 50. WILL TITRATE LEVO AND DOPAMINE ACCORDINGLY
--- NOTE | 2020-07-01 17:34 | NUR ---
PT REMAINS ON AVAPS SETTINGS NO CHANGES AT THIS TIME. PT TOLERATING NPPV WELL AT THIS TIME. PT HAS SLIGHT BREAKDOWN ON BRIDGE OF NOSE FROM MASK. NPPV ALARMS ON AND FUNCTIONING.
--- NOTE | 2020-07-01 19:05 | NUR ---
VS WITHIN NORMAL LIMITS AT THIS TIME. WITH DOPAMINE AT 5 MCG
[2020-07-01] MEDS: AMINO ACIDS 8.5% IV SCH ×3 (19:59)
[2020-07-01] MEDS: FAT EMULSION 20% IV SCH ×3 (19:59)
[2020-07-01] MEDS: DEXTROSE 50% IV SCH ×3 (19:59)
--- NOTE | 2020-07-01 20:00 | NUR ---
RECEIVED REPORT FROM DAY SHIFT RN. PT IS ALERT WITH INTERMITTENT CONFUSION. ON BIPAP @ 70% FIO2. RESPIRATION EVEN AND UNLABORED. ORAL MUCOSA PINK AND MOIST. SKIN WARM AND DRY. SKIN TEAR ON THE LEFT FOREARM, SCATTERED BRUISING TO EXTREMITIES. REDNESS TO SACRUM. OPTIFOAM IN PLACE. PICC LINE ACCESS ON THE LEFT UPPER ARM INFUSING. TPN INFUSING AT 40MLS/HR, DOPAMINE DRIP @ 4 MCG/KG/MIN, LASIX DRIP @ 10MG/HR. PER REPORT DOPAMINE DRIP CAN ONLY BE TITRATED FROM 1 -5 MCG/KG/MIN PER MD. RIGHT FA 20. ALL LINES ASYMPTOMATIC, PATENT AND INTACT. PARKER CATHETER INTACT. PT OLIGURIC. SAFETY MEASURES IN PLACE. BED IN LOW AND LOCKED POSITION. STANDARD PRECAUTIONS MAINTAINED. WILL CONTINUE TO MONITOR.
--- NOTE | 2020-07-01 20:40 | NUR ---
PT IS ALERT WITH INTERMITTENT CONFUSION. ON BIPAP @ 70% FIO2. RESPIRATION EVEN AND UNLABORED. JAYLYN PICC LINE RUNNING: TPN AT 40MLS/HR, DOPAMINE DRIP @ 4 MCG/KG/MIN, LASIX DRIP @ 10MG/HR. PER REPORT DOPAMINE DRIP CAN ONLY BE TITRATED FROM 1 -5 MCG/KG/MIN PER MD. RIGHT FA 20g. SAFETY MEASURES IN PLACE, WILL CONT TO MONITOR.
--- NOTE | 2020-07-01 20:40 | NUR ---
ENDORSED PT TO ASHA FU FOR TRANSFER OF CARE.
--- NOTE | 2020-07-01 20:40 | NUR ---
RECEIVED REPORT FROM MACHINE PULLER AND LASTER TANK MOORE. PT IS RESTING IN BED WITH EYES CLOSED, WILL CONT TO MONITOR.
--- NOTE | 2020-07-01 21:15 | NUR ---
DR SEARS MADE AWARE OF PTs CURRENT HR 46 AND UPDATED ON PTs CONDITION. PER DR SEARS, IF HR < 40, CALL CARDIOLOGY.
[2020-07-02] VITALS (49 sets, daily range): BP systolic 60–149; BP diastolic 24–92
--- NOTE | 2020-07-02 | NUR ---
TURNED AND REPOSITIONED PT. PT TOLERATED IT WELL. CURRENT HR: 46, WILL CONT TO ASSESS.
[2020-07-02] MEDS: FUROSEMIDE 100 MG in DEXTROSE 5% 100 ML IV SCH (00:43)
[2020-07-02] MEDS: DOPamine 400 MG/D5W PREMIX 250 ML IV PRN (00:47)
--- NOTE | 2020-07-02 01:00 | NUR ---
WOUND CARE GIVEN, SEE WOUND ASSESSMENT. PT TOLERATED WELL.
[2020-07-02] MEDS: ALBUTEROL SULFATE/IPRATROPIU 3 ML SOL IH SCH ×3 (01:15→19:38)
--- NOTE | 2020-07-02 02:00 | NUR ---
PTs CONDITION REMAINS UNCHANGED. PTs LATEST HR: 48. SAFETY MEASURES IN PLACE, BED LOW AND LOCKED, 2 SIDE RAILS UP, WILL CONT TO ASSESS.
--- NOTE | 2020-07-02 04:00 | NUR ---
ROUTINE CARE GIVEN, CHG BATH, PARKER CARE, CLEAN LINEN, TURNED AND REPOSITIONED PT. PT TOLERATED IT WELL. SAFETY MEASURES IN PLACE, HOB 30 DEGREES, BED LOW AND LOCKED, SIDE RAILS UP, WILL CONT TO MONITOR.
--- NOTE | 2020-07-02 06:15 | NUR ---
PTs B. GAVE D5% DEXTROSE (50ML) IVP. WILL CONT TO ASSESS. TURNED AND REPOSITIONED. SAFETY MEASURES IN PLACE, SIDE RAILS UP, BED LOW AND LOCKED. WILL CONT TO MONITOR.
[2020-07-02] MEDS: PANTOPRAZOLE 40 MG INJ VIAL IVP SCH (06:24)
[2020-07-02] MEDS: DEXTROSE 50% 50 ML SYR IVP PRN (06:24)
[2020-07-02] MEDS: BLOOD GLUCOSE MONITORING 1 DEV DEV FS SCH ×4 (06:25→17:44)
[2020-07-02 06:26] LABS: BASOPHILS # (AUTO) 0.2 K/uL (0.00-0.22); BASOPHILS % (AUTO) 1.9 % (0.0-2.0); EOSINOPHILS % (AUTO) 0.3 % (0.0-4.0); HEMATOCRIT 23.6 % (36-52); HEMOGLOBIN 7.6 g/dL (12.0-18.0); LYMPHOCYTES # (AUTO) 0.2 K/uL (2.0-11.5); LYMPHOCYTES % (AUTO) 2.4 % (20.5-51.1); MEAN CORPUSCULAR HEMOGLOBIN 30 pg (27-31); MEAN CORPUSCULAR HGB CONC 32 g/dL (33-37); MEAN CORPUSCULAR VOLUME 93.5 fL (80-94); MONOCYTES # (AUTO) 0.9 K/uL (0.8-1.0); MONOCYTES % (AUTO) 9.2 % (1.7-9.3); NEUTROPHILS # (AUTO) 8.7 K/uL (1.8-7.7); NEUTROPHILS % (AUTO) 86.2 % (42.2-75.2); PLATELET COUNT (AUTO) 84 K/uL (140-450); RED BLOOD CELL COUNT(AUTO) 2.52 MIL/uL (4.20-6.10); WHITE BLOOD COUNT (AUTO) 10.1 K/uL (4.8-10.8)
[2020-07-02 06:34] LABS: ALBUMIN 2.2 g/dL (3.4-5.0); ANION GAP 20.9 (8-16); ASPARTATE AMINOTRANSFERASE 103 U/L (15-37); CARBON DIOXIDE 21.3 mmol/L (21-32); CHLORIDE 94 mmol/L (98-107); GLUCOSE 86 mg/dL (74-106); MAGNESIUM 2.1 mg/dL (1.8-2.4); PHOSPHORUS 6.2 mg/dL (2.5-4.9); POTASSIUM 5.2 mmol/L (3.5-5.1); SODIUM SERUM 131 mmol/L (136-145)
--- NOTE | 2020-07-02 06:49 | NUR ---
PTs LATEST BP: 132/71, HR: 54 AND SPO2: 94%. PTs CONDITION OTHERWISE REMAINS THE SAME. SAFETY MEASURES IN PLACE, WILL CONT TO MONITOR.
--- NOTE | 2020-07-02 07:22 | NUR ---
RECEIVED REPORT FROM FORMULA CLERK NURSE. PATIENT IN BED SUPINE, SEDATED TO RASS -3, RESPONDS TO LIGHT PAIN. BREATHING EVEN AND UNLABORED, ETT TO VENT: ACPC FIO2 70%, RR 25, PEEP 10. OG TUBED IN PLACE, FEEDING RUNNING NEPRO @ 30 ML/HR. PARKER CATHETER IN PLACE, DRAINING TO GRAVITY. RECTAL TUBE IN PLACE. OC PICC LINE, R IJ ALYSA CATHETER. INFUSING: FENTANYL @ 0.5 MCG/KG/HR, PROPOFOL @ 20 MCG/KG/MIN, LEVOPHED @ 12 MCG/MIN, NS @ 5 ML/HR. SECTION [address] SAFETY MEASURES IN PLACE.
--- NOTE | 2020-07-02 07:22 | NUR ---
ENDORSED CARE TO DAY SHIFT RN
--- NOTE | 2020-07-02 07:25 | NUR ---
REPORT RECEIVED, PT ON BIPAP 60% FIO2 RATE OF 24,TV450,SATURATING WELL 100%,ON DOPAMINE DRIP AT 5MCG/KG/MIN, LEVOPHED DRIP INFUSING WELL , TPN AT 40 MLS/HR, LASIX DRIP AT 10MLS/HR,ALL FLUIDS INFUSING WELL VIA LEFT PICC, WITH PARKER CATHETER PATENT VERY SCANTY YELLOW OUTPUT.
[2020-07-02 08:10] LABS: CREATININE 5.4 mg/dL (0.6-1.3); UREA NITROGEN, BLOOD 109 mg/dL (7-18)
--- NOTE | 2020-07-02 08:25 | NUR ---
DR CUADRA HERE, SEEN PT,NOTED ALL PARAMETERS, CONTINUE PLAN OF CARE.
[2020-07-02] MEDS: INSULIN LISPRO SLIDING SCALE 100 UNITS/ML VIAL SUBQ PRN ×2 (12:46→17:43)
[2020-07-02 13:34] LABS: ALBUMIN,BODY FLUID 0.7 g/dL
--- NOTE | 2020-07-02 14:53 | NUR ---
PT TAKEN OFF OF NPPV FOR BREAK AND DUE TO BREAK DOWN ON BRIDGE OF NOSE. PT PLACED ON 6L OXYMIZER PT NOT IN ANY DISTRESS SPO2 97%. NURSE MADE AWARE OF PT STATUS. WILL CONTINUE TO MONITOR.
--- NOTE | 2020-07-02 16:20 | NUR ---
PT DESATURATING SP02 82% INCREASED LITER FLOW ON OXYMIZER WITHOUT SUCCESS OF INCREASED SPO2. PT PLACED BACK ON BIPAP AVAPS SETTINGS DOCUMENTED. SPO2 INCREASED TO 94%. NURSE MADE AWARE WILL CONTINUE TO MONITOR.
--- NOTE | 2020-07-02 16:29 | NUR ---
RT CALLED ,PT DESATURATING TO 85%,OXYGEN MAXIMAZER CHANGED BIPAP WITH SAME SETTING, BP ON THE LOW SIDE, LEVOPHED INVREASED TO 4 MCG.,CONTINUE TO OBSERVE
[2020-07-02] MEDS: ATORVASTATIN 20 MG TAB PO SCH (17:41)
--- NOTE | 2020-07-02 18:16 | NUR ---
ON BIPAP OF 45% FIO2 RATE OF 24 EPEP OF 10, SATURATING WELL 99%, PARKER CATHETER IN SITU ,5 MLS OF BLOODY OUTPUT, DR GIRALDO,AWARE DURING ROUNDS THIS MORNING.
--- NOTE | 2020-07-02 18:27 | NUR ---
AFTERNOON CARE DONE,ALL CARES ATTENDED,STILL ON LEVOPHED AT 4MCG/MIN,DOPAMINE DRIP AT 5MCG/KG/MIN,LASIX DRIP AT 10 MGS/HR, PARKER CATHETER INATCT .
--- NOTE | 2020-07-02 19:16 | NUR ---
REPORT GIVEN TO NIGHT NURSE
--- NOTE | 2020-07-02 20:00 | NUR ---
RECEIVED REPORT FROM DAY SHIFT RN. PT IS ALERT WITH INTERMITTENT CONFUSION. ON BIPAP @ 45% FIO2. RESPIRATION EVEN AND UNLABORED. ORAL MUCOSA PINK AND MOIST. A-FIB NOTED ON MONITOR. S1S2 NOTED. JAYLYN PICC LINE, ASYMPTOMATIC, PATENT AND INTACT, RUNNING: TPN INFUSING AT 40MLS/HR, DOPAMINE DRIP @ 5 MCG/KG/MIN, LASIX DRIP @ 10MG/HR AND LEVOPHED @ 4MCG/MIN. PER REPORT DOPAMINE DRIP CAN ONLY BE TITRATED FROM 1 -5 MCG/KG/MIN PER MD. BOWEL SOUNDS ACTIVE IN ALL 4 QUADRANTS. PARKER CATH DRAINING TO GRAVITY, PT IS OLIGURIC. SKIN: WARM AND DRY, SKIN TEAR TO LT FA WITH OPTIFOAM IN PLACE AND LT ELBOW WITH OPTIFOAM IN PLACE, SKIN TEAR TO RT FA WITH OPTIFOAM IN PLACE AND RT ELBOW WITH OPTIFOAM IN PLACE. SACRAL WOUND NOTED WITH OPTIFOAM IN PLACE. SCATTERED BRUISING TO EXTREMITIES. SAFETY MEASURES IN PLACE. BED IN LOW AND LOCKED POSITION. SIDE RAILS UP, WILL CONTINUE TO MONITOR. Addendum: 07/02/20 at 2124 by Reyna Perez RN RN EDEMA TO BILATERAL HANDS NOTED. BILATERAL UPPER ARMS WEEPING D/T EDEMA. Addendum: 07/03/20 at 0109 by Reyna Perez RN RN ADONIS KNIGHT IN PLACE
[2020-07-02] MEDS: FAT EMULSION 20% IV SCH ×3 (20:30)
[2020-07-02] MEDS: AMINO ACIDS 8.5% IV SCH ×3 (20:30)
[2020-07-02] MEDS: DEXTROSE 50% IV SCH ×3 (20:30)
--- NOTE | 2020-07-02 22:00 | NUR ---
PTs BLOOD PRESSURE DECREASED 72/51, INCREASED LEVOPHED DRIP TO 6 MCG/MIN
--- NOTE | 2020-07-02 22:50 | NUR ---
PTs BLOOD PRESSURE DECREASED AGAIN TO 60/49, INCREASED LEVOPHED DRIP TO 8 MCG/MIN.
--- NOTE | 2020-07-02 23:20 | NUR ---
PTs BLOOD PRESSURE DECREASED AGAIN TO 84/57, INCREASED LEVOPHED DRIP TO 10 MCG/MIN. WILL CONT TO ASSESS
--- NOTE | 2020-07-02 23:45 | NUR ---
PTs CURRENT BP: 96/53. HR: 74. WILL CONT TO MONITOR.
[2020-07-03] VITALS (54 sets, daily range): BP systolic 71–131; BP diastolic 31–72
--- NOTE | 2020-07-03 | NUR ---
PTs SBP REMAINS ABOVE 90. WILL CONT TO MONITOR FREQUENTLY. TURNED AND REPOSITIONED PT. PT TOLERATED IT WELL.
[2020-07-03] MEDS: ALBUTEROL SULFATE/IPRATROPIU 3 ML SOL IH SCH ×2 (01:14→19:00)
--- NOTE | 2020-07-03 02:00 | NUR ---
TURNED AND REPOSITIONED PT, PT TOLERATED WELL. SAFETY MEASURES IN PLACE, HOB 30 DEGREES, SIDE RAILS UP. BED LOW AND LOCKED. WILL CONT TO ASSESS.
[2020-07-03] MEDS: FUROSEMIDE 100 MG in DEXTROSE 5% 100 ML IV SCH ×2 (03:27→15:40)
--- NOTE | 2020-07-03 04:30 | NUR ---
WOUND CARE GIVEN. CLEANSED WITH STERILE WATER, PAT DRY WITH GAUZE AND COVERED WITH OPTIFOAM DRESSING TO SACRAL WOUND. CLEANSED WITH STERILE WATER, PAT DRY WITH GAUZE AND COVERED WITH OPTIFOAM DRESSING TO BILATERAL UPPER EXTREMITIES, AND WEEPING NOTED. EDEMA +2 TO HANDS AND FOREARMS. PLACED CHUX UNDER BILATERAL UPPER EXTREMITIES. +1 EDEMA NOTED TO PELVIS/HIP REGION. SCROTAL EDEMA NOTED. TURNED AND REPOSITIONED. PT TOLERATED IT WELL. SAFETY MEASURES IN PLACE, WILL CONT TO MONITOR. Addendum: 07/03/20 at 0514 by Reyna Perez RN RN ROUTINE CARE GIVEN, CHG BATH. CLEAN LINEN AND GOWN.
[2020-07-03] MEDS: BLOOD GLUCOSE MONITORING 1 DEV DEV FS SCH ×5 (06:00→23:24)
[2020-07-03] MEDS: PANTOPRAZOLE 40 MG INJ VIAL IVP SCH (06:21)
--- NOTE | 2020-07-03 06:30 | NUR ---
PTs BILATERAL UPPER EXTREMITIES WEEPING, SEROUS DRAINAGE NOTED. CHANGED CHUX. WILL CONT TO ASSESS. SAFETY MEASURES IN PLACE, BED LOW AND LOCKED, SIDE RAILS UP, WILL CONT TO MONITOR.
[2020-07-03 06:49] LABS: HEMATOCRIT 24.7 % (36-52); HEMOGLOBIN 7.7 g/dL (12.0-18.0); MEAN CORPUSCULAR HEMOGLOBIN 30 pg (27-31); MEAN CORPUSCULAR HGB CONC 31 g/dL (33-37); MEAN CORPUSCULAR VOLUME 94.9 fL (80-94); PLATELET COUNT (AUTO) 74 K/uL (140-450)
--- NOTE | 2020-07-03 06:55 | NUR ---
REC'D PT ON BIPAP AVAP OF 10 RR 24 ITIME 0.90 FIO2 35% ALARMS ON AND AUDIBLE AND BIPAP IS PLUGGED INTO RED OUTLET, BVM AT HOB B\S ARE DIMINISHED BILATERALLY, PT IS WEARING A MED FACE MASK WITH REDNESS ON BRIDGE OF NOSE PT HAS PROTECTIC GEL IN PLACE, PT IS RESTING WILL CONTINUE TO MONITOR PT
--- NOTE | 2020-07-03 07:06 | NUR ---
DR GARCIA ON UNIT. UPDATED ON PTs CONDITION.
--- NOTE | 2020-07-03 07:28 | NUR ---
ENDORSED CARE TO YARA SAMAYOA
--- NOTE | 2020-07-03 07:30 | NUR ---
RECEIVED BEDSIDE REPORT FROM CSR TECHNICIAN RN. PT LYING AND RESTING IN BED. AXOX1, OPENS EYES TO PAIN AND TOUCH. ON BIPAP 35% FIO2, SATURATING >95%, WITH UNLABORED SHALLOW BREATHING. A-FIB ON TELE MONITOR. PICC LINE ON LEFT UPPER ARM, RUNNING LEVO @12MCG, DOPAMINE @5MCG, TPN @40CC/HR, AND LASIX AT10MG/HR. PARKER CATHETER IN PLACE, BLOOD TINGE URINE, DAILY IRRIGATION. CHG BATH COMPLETED. WILL CONTINUE TO MONITOR.
[2020-07-03 08:12] LABS: ALBUMIN 2.3 g/dL (3.4-5.0); ANION GAP 23.3 (8-16); ASPARTATE AMINOTRANSFERASE 112 U/L (15-37); CARBON DIOXIDE 19.2 mmol/L (21-32); CHLORIDE 92 mmol/L (98-107); GLUCOSE 113 mg/dL (74-106); MAGNESIUM 2.2 mg/dL (1.8-2.4); PHOSPHORUS 6.8 mg/dL (2.5-4.9); POTASSIUM 5.5 mmol/L (3.5-5.1); SODIUM SERUM 129 mmol/L (136-145); TOTAL BILIRUBIN 1.1 mg/dL (0.0-1.0)
--- NOTE | 2020-07-03 09:00 | NUR ---
PATIENT LYING AND RESTING IN BED, NEW BAG OF DOPAMINE ADMIN. PER MD ORDERS, WILL CONTINUE TO MONITOR.
[2020-07-03 09:11] LABS: CREATININE 6.1 mg/dL (0.6-1.3); UREA NITROGEN, BLOOD 123 mg/dL (7-18)
[2020-07-03] MEDS: DOPamine 400 MG/D5W PREMIX 250 ML IV PRN (09:24)
[2020-07-03 10:59] LABS: LYMPHOCYTES % (MANUAL) 6 % (20-46); MONOCYTES % (MANUAL) 7 % (5-12); WHITE BLOOD COUNT (AUTO) 20.1 K/uL (4.8-10.8)
[2020-07-03] MEDS ORDERED: SODIUM ZIRCONIUM CYCLOSILICATE 10 GM POWD.PACK PO SCH (12:55)
--- NOTE | 2020-07-03 14:00 | NUR ---
WOUND CARE COMPLETED. CHG BATH AND PARKER CATHETER CARE COMPLETED. PARKER CATHETER IRRIGATION COMPLETED. WILL CONTINUE TO MONITOR.
[2020-07-03] MEDS ORDERED: COMMUNICATION ORDER MC ONE ×2 (14:35→14:45)
[2020-07-03] MEDS ORDERED: SODIUM POLYSTYRENE 15 GM/60 ML UDBTL PR SCH (15:00)
--- NOTE | 2020-07-03 15:30 | NUR ---
KAYEXALATE ADMIN. VIA RECTUM PER MD ORDERS FOR ELEVATED K+, WILL CONTINUE TO MONITOR.
[2020-07-03] MEDS: ATORVASTATIN 20 MG TAB PO SCH (16:15)
[2020-07-03] MEDS: NOREPINEPHRINE 16 MG in DEXTROSE 5% 250 ML IV PRN (16:44)
[2020-07-03] MEDS: PIPERACILLIN/TAZOBACTAM 2.25 GM in DEXTROSE 5% 50 ML IV SCH ×2 (17:16→23:24)
--- NOTE | 2020-07-03 19:10 | NUR ---
BEDSIDE REPORT GIVEN TO TANK ALANIS FOR CONTINUITY OF CARE.
--- NOTE | 2020-07-03 19:10 | NUR ---
RECEIVED BEDSIDE REPORT FROM DAY RN. PT APPEARS TO BE SLEEPING NOT RESPONSIVE TO NAME, MINIMAL RESPONSE TO STERNUM RUB. RESPIRATION EVEN AND UNLABORED ON BIPAP RR 24 FIO2 35% PT SAT WELL 99%. ABDOMEN SOFT, NON TENDER. BOWEL SOUNDS ARE ACTIVE X4. JAYYLN PICC DOUBLE LUMEN INFUSING LEVOPHED AT 10MCG/MIN, DOPA AT 5MCG/KG/MIN AND TPN AT 40ML/H. PARKER WITH MINIMAL RED UO NOTED. PT HX PENILE PROSTATE. PT WITH SACRAL ULCER WITH DRESSING C/D/I. BUE SKIN TEARS SPECIAL INVESTIGATION UNIT INVESTIGATOR WEEPING. ALL LINES ASYMPTOMATIC PATENT AND INTACT. SIDE RAILS UP, BED IN LOW AND LOCKED POSITIONED. ON STANDARD ISOLATION. POC REVIEWED WITH PT. PT UNABLE TO COMPREHEND. WILL CONTINUE TO MONITOR.
[2020-07-03] MEDS: FAT EMULSION 20% IV SCH ×3 (19:55)
[2020-07-03] MEDS: DEXTROSE 50% IV SCH ×3 (19:55)
[2020-07-03] MEDS: AMINO ACIDS 8.5% IV SCH ×3 (19:55)
--- NOTE | 2020-07-03 19:55 | NUR ---
VITAL SIGNS ARE STABLE, 97.4, RR 24 100% ON BIPAP FIO2 35%, 63BPM, 131/67. PATIENT VERY LETHARGIC OPEN EYES SLIGHTLY TO STERNUM RUB. PT WAS REPOSITION WITH ASSISTANCE. NOTED VERY MINIMAL BLOODY URINE OUTPUT PT ON LASIX DRIP. HOB ELEVATED. SAFETY MEASURES ARE IN PLACE. WILL CONTINUE TO MONITOR.
--- NOTE | 2020-07-03 22:15 | NUR ---
PATIENT APPEARS TO BE SLEEPING REMAINS ON SAME BIPAP SETTINGS SAT 100%. CHEST RISE AND FALL NOTED. SAFETY MEASURES ARE IN PLACE. WILL CONTINUE TO MONITOR.
[2020-07-03] MEDS: INSULIN LISPRO SLIDING SCALE 100 UNITS/ML VIAL SUBQ PRN (23:24)
--- NOTE | 2020-07-03 23:24 | NUR ---
VITAL SIGNS ARE STABLE CONT ON PRESSORS. BLOOD SUGAR 163 ADMIN INSULIN PER SLIDING SCALE. ZOSYN IVPB INFUSING PER ORDERS. PT WAS CLEANED X 1 LARGE LIQUID BM WITH ASSIST OF ANOTHER RN. PT REPOSITION. SAFETY MEASURES ARE IN PLACE. WILL CONTINUE TO MONITOR.
[2020-07-04] VITALS (46 sets, daily range): BP systolic 89–131; BP diastolic 44–75
[2020-07-04] MEDS: ALBUTEROL SULFATE/IPRATROPIU 3 ML SOL IH SCH ×4 (01:32→19:00)
--- NOTE | 2020-07-04 02:00 | NUR ---
BIPAP ALARMING RT IS AT BEDSIDE. PT IS SAT WELL 100% WITH SHALLOW BREATHING 30. WILL CONTINUE TO MONITOR.
[2020-07-04] MEDS: FUROSEMIDE 100 MG in DEXTROSE 5% 100 ML IV SCH ×2 (03:12→15:30)
[2020-07-04] MEDS: PANTOPRAZOLE 40 MG INJ VIAL IVP SCH (05:35)
[2020-07-04] MEDS: INSULIN LISPRO SLIDING SCALE 100 UNITS/ML VIAL SUBQ PRN ×2 (05:35→13:19)
[2020-07-04] MEDS: BLOOD GLUCOSE MONITORING 1 DEV DEV FS SCH ×4 (05:35→23:26)
[2020-07-04] MEDS: PIPERACILLIN/TAZOBACTAM 2.25 GM in DEXTROSE 5% 50 ML IV SCH ×4 (05:35→23:17)
--- NOTE | 2020-07-04 05:35 | NUR ---
BLOOD SUGAR 177 ADMIN INSULIN PER SLIDING SCALE. PT WAS CLEANED AND REPOSITION WITH ASSISTANCE OF RT. PATIENT WITH LIQUID BROWN STOOL. ALL SAFETY MEASURES ARE IN PLACE. HOB ELEVATED. SAFETY MEASURES ARE IN PLACE. WILL CONTINUE TO MONITOR.
[2020-07-04 05:53] LABS: HEMATOCRIT 25.3 % (36-52); MEAN CORPUSCULAR HEMOGLOBIN 30 pg (27-31); MEAN CORPUSCULAR HGB CONC 32 g/dL (33-37); MEAN CORPUSCULAR VOLUME 94.3 fL (80-94); PLATELET COUNT (AUTO) 58 K/uL (140-450); RED BLOOD CELL COUNT(AUTO) 2.69 MIL/uL (4.20-6.10); RED CELL DISTRIBUTION WIDTH 16.9 % (11.6-13.7); WHITE BLOOD COUNT (AUTO) 18.8 K/uL (4.8-10.8)
[2020-07-04 06:30] LABS: ALBUMIN 2.1 g/dL (3.4-5.0); ANION GAP 23.6 (8-16); ASPARTATE AMINOTRANSFERASE 88 U/L (15-37); CARBON DIOXIDE 18.5 mmol/L (21-32); CHLORIDE 92 mmol/L (98-107); GLUCOSE 174 mg/dL (74-106); MAGNESIUM 2.1 mg/dL (1.8-2.4); PHOSPHORUS 6.6 mg/dL (2.5-4.9); POTASSIUM 5.1 mmol/L (3.5-5.1); SODIUM SERUM 129 mmol/L (136-145); TOTAL BILIRUBIN 1.1 mg/dL (0.0-1.0)
[2020-07-04 06:34] LABS: CREATININE 6.4 mg/dL (0.6-1.3); UREA NITROGEN, BLOOD 132 mg/dL (7-18)
--- NOTE | 2020-07-04 06:45 | NUR ---
rec'd pt on haider v60 bipap avap 20 rr 24 itime 0.90 fio2 28% alarms on and audible bipap is plugged into red outlet, i\l tx given with duoneb 3ml with no adverse reaction post tx b\s are diminished bilaterally, pt is wearing med face mask with bandage over bridge of nose, pt is resting will continue to monitor pt Addendum: 07/04/20 at 0710 by Griselda Alvarado RT bvm at hob
--- NOTE | 2020-07-04 07:30 | NUR ---
GAVE BEDSIDE REPORT TO DAY RN. PT ENDORSED IN STABLE CONDITION.
[2020-07-04 09:01] LABS: LYMPHOCYTES % (MANUAL) 6 % (20-46); MONOCYTES % (MANUAL) 7 % (5-12)
[2020-07-04 09:03] LABS: CORRECTED WHITE BLOOD COUNT 17.4 K/uL (4.5-11.0)
--- NOTE | 2020-07-04 12:30 | NUR ---
WOUND CARE EVALUATION NOTE: 84 Y/O MALE BEING TREATED FOR ASPIRATION PNEUMONIA. COVID NEGATIVE. ON BIPAP WITH FIO2 35% PATIENT IS DNI. ALL ABOVE INFORMATION OBTAIN FROM PT.H&P. PT. CHANGE OF SHERRI SCALE AND WITH SKIN FAILURE, SKIN ASSESSMENT DONE WITH PRIMARY RN. POC DISCUSSED WITH DR. SEARS. COMORBIDITIES RELATED TO DELAY WOUND HEALING, FURTHER SKIN BREAKS AND UN-AVOIDABLE PRESSURE INJURY: BOWEL INCONTINENCE, LOW H/H, HYPOXEMIC DECREASE TISSUE PERFUSION, DECREASE MOBILITY AND FUNCTIONAL ABILITIES, AND HOB ELEVATED THE MAJORITY OF TIMES DUE TO MEDICAL REASONS. INTEGUMENTARY: -SACRALCOCCYX ISCHEMIA ULCER 3X2 DARK PURPLE WITH SKIN INTACT, JASON-WOUND DENUDED SKIN MULTIPLE SKIN SUPERFICIAL EROSIONS WOUND BEDS 100% WHITE, MOIST AND, NO ODOR, ENTIRE AFFECTED AREA 5X6CM -BILATERAL ARMS SKIN MOIST WEEPING SEROUS FLUIDS, DORSAL HANDS TRACE EDEMA -RIGHT ELBOW SCAB OFF WITH 0.5X0.5CM SUPERFICIAL DEPTH, AREA PINK, JASON-WOUND INTACT SKIN -RIGHT HEEL BLANCHABLE REDNESS, SKIN INTACT -LEFT ARM SKIN TEAR 3X4X0.1CM WOUND BED 100% GRANULATING TISSUE, MOIST, JASON WOUND SKIN MOIST WITH TRACE EDEMA AND SEEPING OUT SEROUS FLUIDS -LEFT HEEL ACHILLES AREA DTI 100% MAROON COLOR SKIN INTACT RECOMMENDATION: -CLEANSE SACRALCOCCYX WITH NS. PAT DRY APPLY THERAHONEY GEL TO WOUND BED AND COVER WITH DRY DRESSING QD AND PRN IF SOILING -APPLY Z GUARD TO SCROTAL AND LOWER BUTTOCKS BID AND LEAVE IT OPEN TO AIR -APPLY VERSATEL TO LEFT ARM SKIN TEAR AND RIGHT ELBOW CHANGE Q5 DAYS AND PRN IF SOILING -WIPE LEFT AND RIGHT HEEL WITH SKIN PREP BID, WILTON , APPLY HEEL RAISERS AND OFFLOADING -TURN AND REPOSITION PATIENT Q 2H -ASSESS AND MONITOR SKIN CONDITION DURING POSITION CHANGE -OFFLOAD BILATERAL HEELS BY PLACING PILLOWS UNDER CALVES AT ALL TIMES, UNLESS OTHERWISE CONTRAINDICATED -PRESSURE REDISTRIBUTION BY PLACING PILLOWS AND OFFLOADING SACRALCOCCYX -KEEP SKIN CLEAN AND DRY AT ALL TIMES. PLEASE CONTACT WOUND CARE NURSE FOR ANY QUESTION AND CHANGE OF SKIN CONDITION.
[2020-07-04] MEDS: DOPamine 400 MG/D5W PREMIX 250 ML IV PRN (12:55)
[2020-07-04] MEDS: THERAHONEY GEL 42.5 GM TP SCH (13:00)
--- NOTE | 2020-07-04 14:58 | NUR ---
07/04/20 RD FOLLOW UP COMPLETED PLEASE REFER TO NUTRITION ASSESSMENT UNDER CARE ACTIVITY FOR ESTIMATED NUTRITIONAL NEEDS. 1. CURRENT TPN D15%, AA 3.25%, LIPIDS 10% 100 ML @ 40 ML/HR, REGIMEN PROVIDES 713 KCAL AND 31 GM OF PROTEIN, MEETING 37% OF KCAL AND 40% OF PROTEIN 2. RECOMMEND INCREASING TPN TO MEET 75% OF ESTIMATED KCAL AND PROTEIN NEEDS 3. CONSULT RD PRN FOR ANY CHANGES 4. RD TO FOLLOW-UP 2-3 DAYS, HIGH RISK PRITI SUH RD
[2020-07-04] MEDS: NOREPINEPHRINE 16 MG in DEXTROSE 5% 250 ML IV PRN ×2 (15:32→23:08)
[2020-07-04] MEDS: ATORVASTATIN 20 MG TAB PO SCH (17:00)
--- NOTE | 2020-07-04 19:19 | NUR ---
RECEIVED BEDSIDE REPORT FROM DAY RN. PT APPEARS TO BE SLEEPING NOT RESPONSIVE TO NAME, MINIMAL RESPONSE TO STERNUM RUB. RESPIRATION EVEN AND UNLABORED ON BIPAP: AVAP 20 RR 24 FIO2 35% EPAP 10 PT SAT WELL 99% WITH RR 27. ABDOMEN SOFT, NON TENDER. BOWEL SOUNDS ARE ACTIVE X4. JAYLYN PICC DOUBLE LUMEN INFUSING LEVOPHED AT 10MCG/MIN, DOPA AT 5MCG/KG/MIN AND TPN AT 40ML/H. PARKER WITH MINIMAL RED UO NOTED. PT HX PENIS IMPLANT. PT WITH SACRAL ULCER WITH DRESSING C/D/I. BUE SKIN TEARS WITH VERSATIL WEEPING WITH CHUCKS UNDERNEATH. BUE/BLE WITH NOTED PITTING EDEMA. ALL LINES ASYMPTOMATIC PATENT AND INTACT. SIDE RAILS UP, BED IN LOW AND LOCKED POSITIONED. ON STANDARD ISOLATION. POC REVIEWED WITH PT. PT UNABLE TO COMPREHEND. WILL CONTINUE TO MONITOR.
[2020-07-04] MEDS: AMINO ACIDS 8.5% IV SCH ×3 (19:33)
[2020-07-04] MEDS: FAT EMULSION 20% IV SCH ×3 (19:33)
[2020-07-04] MEDS: DEXTROSE 50% IV SCH ×3 (19:33)
--- NOTE | 2020-07-04 19:33 | NUR ---
NEW BAG TPN NOW INFUSING PER ORDERS. PT WAS CLEANED AND REPOSITION FOR COMFORT. ALL SAFETY MEASURES ARE IN PLACE.
[2020-07-04] MEDS ORDERED: Z-GUARD PASTE TP ONE (23:16)
[2020-07-04] MEDS: Z-GUARD PASTE TP SCH (23:17)
--- NOTE | 2020-07-04 23:17 | NUR ---
[facility] IV ABX NOW INFUSING PER ORDERS. BLOOD SUGAR 137 NO INSULIN COVERAGE NEEDED. PT WAS REPOSITION FOR COMFORT AND Z GUARD APPLIED. SAFETY MEASURES ARE IN PLACE.
[2020-07-05] VITALS (35 sets, daily range): BP systolic 88–115; BP diastolic 43–68
[2020-07-05] MEDS: ALBUTEROL SULFATE/IPRATROPIU 3 ML SOL IH SCH ×2 (01:25→19:00)
--- NOTE | 2020-07-05 02:15 | NUR ---
ROUNDS MADE. PATIENT APPEARS TO BE SLEEPING REMAINS ON SAME BIPAP SETTINGS SAT 100%. CHEST RISE AND FALL NOTED. SAFETY MEASURES ARE IN PLACE. WILL CONTINUE TO MONITOR.
--- NOTE | 2020-07-05 04:30 | NUR ---
PATIENT WAS CLEANED AND REPOSITION FOR COMFORT. NO BM. BLE SKIN TEARS WEEPING DRESSINGS WERE CHANGED AND ABSORBENT PADS APPLIED UNDERNEATH. HOB ELEVATED. SAFETY MEASURES ARE IN PLACE. WILL CONTINUE TO MONITOR. Addendum: 07/05/20 at 0554 by Gloria Marsh RN NO SKIN TEARS ON BLE. SKIN TEARS ARE ON BUE.
[2020-07-05] MEDS: PIPERACILLIN/TAZOBACTAM 2.25 GM in DEXTROSE 5% 50 ML IV SCH ×4 (05:36→23:24)
[2020-07-05] MEDS: PANTOPRAZOLE 40 MG INJ VIAL IVP SCH (05:36)
[2020-07-05] MEDS: INSULIN LISPRO SLIDING SCALE 100 UNITS/ML VIAL SUBQ PRN ×2 (05:38→18:45)
[2020-07-05] MEDS: BLOOD GLUCOSE MONITORING 1 DEV DEV FS SCH ×2 (05:38→23:24)
[2020-07-05 05:54] LABS: BASOPHILS # (AUTO) 0.2 K/uL (0.00-0.22); BASOPHILS % (AUTO) 1.4 % (0.0-2.0); EOSINOPHILS % (AUTO) 0.2 % (0.0-4.0); HEMOGLOBIN 7.6 g/dL (12.0-18.0); LYMPHOCYTES # (AUTO) 0.4 K/uL (2.0-11.5); LYMPHOCYTES % (AUTO) 2.5 % (20.5-51.1); MEAN CORPUSCULAR HEMOGLOBIN 30 pg (27-31); MEAN CORPUSCULAR HGB CONC 32 g/dL (33-37); MEAN CORPUSCULAR VOLUME 93.6 fL (80-94); MONOCYTES # (AUTO) 1.3 K/uL (0.8-1.0); MONOCYTES % (AUTO) 7.8 % (1.7-9.3); NEUTROPHILS # (AUTO) 14.6 K/uL (1.8-7.7); NEUTROPHILS % (AUTO) 88.1 % (42.2-75.2); PLATELET COUNT (AUTO) 49 K/uL (140-450); RED BLOOD CELL COUNT(AUTO) 2.57 MIL/uL (4.20-6.10); RED CELL DISTRIBUTION WIDTH 17.2 % (11.6-13.7); WHITE BLOOD COUNT (AUTO) 16.6 K/uL (4.8-10.8)
[2020-07-05 06:45] LABS: ALBUMIN 1.9 g/dL (3.4-5.0); ASPARTATE AMINOTRANSFERASE 61 U/L (15-37); CARBON DIOXIDE 18.1 mmol/L (21-32); CHLORIDE 91 mmol/L (98-107); GLUCOSE 148 mg/dL (74-106); MAGNESIUM 2.1 mg/dL (1.8-2.4); PHOSPHORUS 6.5 mg/dL (2.5-4.9); POTASSIUM 5.1 mmol/L (3.5-5.1); SODIUM SERUM 128 mmol/L (136-145); TOTAL BILIRUBIN 1.2 mg/dL (0.0-1.0)
--- NOTE | 2020-07-05 07:02 | NUR ---
NOTIFIED DR SEARS REGARDING BUN 143 AND CREA 6.9 NO NEW ORDERS AT THIS TIME.
[2020-07-05 07:05] LABS: UREA NITROGEN, BLOOD 143 mg/dL (7-18)
[2020-07-05 07:06] LABS: CREATININE 6.9 mg/dL (0.6-1.3)
--- NOTE | 2020-07-05 07:25 | NUR ---
GAVE BEDSIDE REPORT TO DAY RN. PT ENDORSED IN STABLE CONDITION.
[2020-07-05] MEDS: THERAHONEY GEL 42.5 GM TP SCH (13:00)
[2020-07-05] MEDS: Z-GUARD PASTE TP SCH (13:20)
[2020-07-05] MEDS: NOREPINEPHRINE 16 MG in DEXTROSE 5% 250 ML IV PRN (15:03)
[2020-07-05] MEDS: DOPamine 400 MG/D5W PREMIX 250 ML IV PRN (15:09)
[2020-07-05] MEDS: ATORVASTATIN 20 MG TAB PO SCH (15:10)
--- NOTE | 2020-07-05 19:15 | NUR ---
RECEIVED BEDSIDE REPORT FROM DAY SHIFT RN. PT LYING AND RESTING IN BED. AXOX1/LETHARGIC, OPENS EYES TO PAIN AND TOUCH. PT ON BIPAP 35% FIO2, UNLABORED SHALLOW BREATHING W/ DIMINISHED LUNG SOUNDS. JUNCTIONAL RHYTHM MONITOR. PICC LINE ON LEFT UPPER ARM INFUSING LEVO, DOPAMINE, TPN @40CC/HR AND D5 NS. ABD SOFT AND FLAT, SKIN IS COOL AND DRY TO TOUCH, BEAR HUGGER IN PLACE, SKIN NON INTACT/SEE WOUND ASSESSMENT DOC, PARKER CATHETER IN PLACE DRAINING VIA GRAVITY W/ BLOOD TINGE URINE, PT SHOWING NO SIGNS OF ACUTE DISTRESS, SAFETY MEASURES IN PLACE, WILL CONTINUE WITH CURRENT POC
[2020-07-05] MEDS: AMINO ACIDS 8.5% IV SCH ×3 (20:08)
[2020-07-05] MEDS: DEXTROSE 50% IV SCH ×3 (20:08)
[2020-07-05] MEDS: FAT EMULSION 20% IV SCH ×3 (20:08)
[2020-07-06] VITALS (15 sets, daily range): BP systolic 90–119; BP diastolic 44–68
[2020-07-06] MEDS: Z-GUARD PASTE TP SCH (00:06)
[2020-07-06] MEDS: ALBUTEROL SULFATE/IPRATROPIU 3 ML SOL IH SCH ×2 (00:55→19:00)
[2020-07-06] MEDS: PIPERACILLIN/TAZOBACTAM 2.25 GM in DEXTROSE 5% 50 ML IV SCH (05:29)
[2020-07-06] MEDS: BLOOD GLUCOSE MONITORING 1 DEV DEV FS SCH (05:29)
[2020-07-06] MEDS: PANTOPRAZOLE 40 MG INJ VIAL IVP SCH (05:41)
--- NOTE | 2020-07-06 07:17 | NUR ---
ENDORSED TO DAY SHIFT RN FOR CONTINUITY OF CARE
[2020-07-06 07:23] LABS: HEMOGLOBIN 7.6 g/dL (12.0-18.0); MEAN CORPUSCULAR HEMOGLOBIN 29 pg (27-31); MEAN CORPUSCULAR HGB CONC 31 g/dL (33-37); MEAN CORPUSCULAR VOLUME 93.3 fL (80-94); RED BLOOD CELL COUNT(AUTO) 2.67 MIL/uL (4.20-6.10); RED CELL DISTRIBUTION WIDTH 17.5 % (11.6-13.7)
[2020-07-06 07:52] LABS: PLATELET COUNT (AUTO) 48 K/uL (140-450)
[2020-07-06 07:54] LABS: WHITE BLOOD COUNT (AUTO) 50.8 K/uL (4.8-10.8)
[2020-07-06 07:55] LABS: CORRECTED WHITE BLOOD COUNT 29.8 K/uL (4.5-11.0)
[2020-07-06 07:57] LABS: LYMPHOCYTES % (MANUAL) 3 % (20-46); MONOCYTES % (MANUAL) 6 % (5-12)
--- NOTE | 2020-07-06 08:00 | NUR ---
DR. GARCIA MADE ROUNDS. UPDATED ON CURRENT PATIENT CONDITION. ORDERED TO DC BIPAP PATIENT IS NOT A CANDIDATE DUE TO PATIENT NOT ALERT AND LETHARGIC. ORDER ENTERED AND RT MADE AWARE. RT PLACED PATIENT ON NC 4L AND PATIENT O2 SAT 93% ON NASAL CANNULA.
[2020-07-06 08:35] LABS: ALBUMIN 1.8 g/dL (3.4-5.0); ANION GAP 24.8 (8-16); ASPARTATE AMINOTRANSFERASE 46 U/L (15-37); CARBON DIOXIDE 16.7 mmol/L (21-32); CHLORIDE 91 mmol/L (98-107); GLUCOSE 170 mg/dL (74-106); MAGNESIUM 2.1 mg/dL (1.8-2.4); PHOSPHORUS 6.8 mg/dL (2.5-4.9); SODIUM SERUM 127 mmol/L (136-145); TOTAL BILIRUBIN 1.3 mg/dL (0.0-1.0); TRIGLYCERIDES 43 mg/dL (30-150)
--- NOTE | 2020-07-06 09:05 | NUR ---
PATIENT TAKEN OFF BIPAP PER ORDERS. PATIENT PLACED ON 3L NASAL CANNULA. SP02 96%
[2020-07-06 09:30] LABS: CHOL/HDL RATIO 4.6 (1-4.5); CREATININE 7.6 mg/dL (0.6-1.3); HDL CHOLESTEROL 8 mg/dL (40-60); LDL (CALC) 21 mg/dL (60-100); UREA NITROGEN, BLOOD 153 mg/dL (7-18)
[2020-07-06 09:39] LABS: POTASSIUM 5.5 mmol/L (3.5-5.1)
[2020-07-06 09:48] LABS: ANION GAP 24.8 (8-16); CARBON DIOXIDE 16.9 mmol/L (21-32); CHLORIDE 91 mmol/L (98-107); GLUCOSE 203 mg/dL (74-106); SODIUM SERUM 127 mmol/L (136-145)
[2020-07-06 10:01] LABS: CREATININE 7.6 mg/dL (0.6-1.3); POTASSIUM 5.7 mmol/L (3.5-5.1); UREA NITROGEN, BLOOD 155 mg/dL (7-18)
[2020-07-06 10:02] LABS: HEMATOCRIT 26.2 % (36-52); HEMOGLOBIN 8.1 g/dL (12.0-18.0); MEAN CORPUSCULAR HEMOGLOBIN 29 pg (27-31); MEAN CORPUSCULAR HGB CONC 31 g/dL (33-37); RED BLOOD CELL COUNT(AUTO) 2.79 MIL/uL (4.20-6.10); RED CELL DISTRIBUTION WIDTH 17.8 % (11.6-13.7); WHITE BLOOD COUNT (AUTO) 49.9 K/uL (4.8-10.8)
[2020-07-06 10:03] LABS: PLATELET COUNT (AUTO) 44 K/uL (140-450)
[2020-07-06 10:04] LABS: LYMPHOCYTES % (MANUAL) 3 % (20-46); MONOCYTES % (MANUAL) 7 % (5-12)
--- NOTE | 2020-07-06 11:45 | NUR ---
PATIENT BROUGHT TO CT SCAN WITH RADIOLOGY AT THIS TIME. TOLERATED WITHOUT ANY NOTED ISSUES.
--- NOTE | 2020-07-06 12:10 | NUR ---
NOTED PATIENT START TO DESAT INTO 80S ON NASAL CANNULA. PLACED PATIENT ON NON REBREATHER MASK. DESPITE BEING ON NRM PATIENT CONTINUES TO DESAT EVEN INTO 60S. AT THIS TIME PATIENT ALSO BRADYCARDIC WITH RATE GOING INTO 50S. CALLED AND NOTIFIED DR. GARCIA. LET HIM KNOW PATIENT O2 SATS IN 60S AND ON NRM. HE STATED NO NEW ORDERS, PATIENT IS DNI, AND HE WILL CALL PATIENT SON. PHONE NUMBER OF PATIENT SON GIVEN TO DR. GACRIA.
--- NOTE | 2020-07-06 12:25 | NUR ---
PATIENT HR IN 40S AND CONTINUE TO DESAT INTO 30S. DR. SEARS CALLED AND MADE AWARE. HE STATED HE WILL COME TO SEE PATIENT. DR. SEARS CAME TO SEE PATIENT AT BEDSIDE. PULSE FELT BY DR. SEARS WELL MYSELF. STATED HE WILL CALL PATIENT SON. AT THIS TIME HR IN 30S WITH PALPABLE CAROTID PULSE AND O2 SAT IN 20S. HE ORDERED TO GIVE ATROPINE X1 AND EP1 X1. ORDERS CARRIED OUT.
--- NOTE | 2020-07-06 12:57 | NUR ---
PATIENT ASYSTOLE AND PULSELESS. CODE BLUE CALLED AND CODE TEAM ARRIVED. CODE RAN BY ER MD. PATIENT INFORMATION GIVEN TO MD. THROUGHOUT CODE EPI X3 GIVEN, CALCIUM GLUCONATE X1, D50 X1, SODIUM BICARB X1. DR. SEARS AT BEDSIDE AT 1304. TIME OF CALLED BY ER MD AT 1305. PATIENT FAMILY CALLED AND NOTIFIED BY DR. SEARS AT 1307.
--- NOTE | 2020-07-06 13:45 | NUR ---
CALLED AND SPOKE TO BRADLEY FROM [employer] TO NOTIFY THAT I NEEDED TI GET IN TOUCH WITH PHYSICIAN EXTENDER TO REPORT PATIENT . INFORMATION GIVEN, SHE STATED TO WAIT FOR DEPUTY TO CALL BACK. AWAITING CALL AT THIS TIME.
--- NOTE | 2020-07-06 14:10 | NUR ---
CALLED [facility] AND SPOKE TO PRITI. SHE STATED MAY RELEASE BODY NECESSARY. REFERRAL NUMBER [id number]
[2020-07-06] MEDS ORDERED: FAT EMULSION 20% IV SCH ×3 (20:00)
[2020-07-06] MEDS ORDERED: AMINO ACIDS 8.5% IV SCH ×3 (20:00)
[2020-07-06] MEDS ORDERED: DEXTROSE 50% IV SCH ×3 (20:00)
== END 2020-07-06 16:00 | DRG 871 ==
LOC: MED 08:52 → MTU 13:30 → MMU 06-27 02:37
PROVIDERS: ADMIT Family Medicine; ATTEND Family Medicine
PROC: 0W993ZZ Drainage of Right Pleural Cavity, Percutaneous Approach (ICD-10-PCS; 2020-06-26)
PROC: 5A1935Z Respiratory Ventilation, Less than 24 Consecutive Hours (ICD-10-PCS; principal; 2020-06-27)
PROC: 0BH17EZ Insertion of Endotracheal Airway into Trachea, Via Natural or Artificial Opening (ICD-10-PCS; 2020-06-27)
PROC: 02HV33Z Insertion of Infusion Device into Superior Vena Cava, Percutaneous Approach (ICD-10-PCS; 2020-06-27)
PROC: B548ZZA Ultrasonography of Superior Vena Cava, Guidance (ICD-10-PCS; 2020-06-27)
PROC: 5A09357 Assistance with Respiratory Ventilation, Less than 24 Consecutive Hours, Continuous Positive Airway Pressure (ICD-10-PCS; 2020-06-27)
PROC: 5A09357 Assistance with Respiratory Ventilation, Less than 24 Consecutive Hours, Continuous Positive Airway Pressure (ICD-10-PCS; 2020-06-28)
PROC: 5A09457 Assistance with Respiratory Ventilation, 24-96 Consecutive Hours, Continuous Positive Airway Pressure (ICD-10-PCS; 2020-06-29)
PROC: 5A1935Z Respiratory Ventilation, Less than 24 Consecutive Hours (ICD-10-PCS; 2020-07-02)
PROC: 5A09557 Assistance with Respiratory Ventilation, Greater than 96 Consecutive Hours, Continuous Positive Airway Pressure (ICD-10-PCS; 2020-07-02)
PROC: 5A12012 Performance of Cardiac Output, Single, Manual (ICD-10-PCS; 2020-07-06)
DX: A41.9 Sepsis, unspecified organism (principal); J69.0 Pneumonitis due to inhalation of food and vomit; I50.43 Acute on chronic combined systolic (congestive) and diastolic (congestive) heart failure; N17.0 Acute kidney failure with tubular necrosis; J96.01 Acute respiratory failure with hypoxia; J96.02 Acute respiratory failure with hypercapnia; G93.41 Metabolic encephalopathy; E44.0 Moderate protein-calorie malnutrition; D68.59 Other primary thrombophilia; J91.8 Pleural effusion in other conditions classified elsewhere; E87.1 Hypo-osmolality and hyponatremia; I13.0 Hypertensive heart and chronic kidney disease with heart failure and stage 1 through stage 4 chronic kidney disease, or unspecified chronic kidney disease; Z68.1 Body mass index [BMI] 19.9 or less, adult; E86.0 Dehydration; D50.9 Iron deficiency anemia, unspecified; I46.9 Cardiac arrest, cause unspecified; I25.10 Atherosclerotic heart disease of native coronary artery without angina pectoris; Z20.822 Contact with and (suspected) exposure to COVID-19; Z79.01 Long term (current) use of anticoagulants; E78.5 Hyperlipidemia, unspecified; E83.42 Hypomagnesemia; I48.0 Paroxysmal atrial fibrillation; E02 Subclinical iodine-deficiency hypothyroidism; N18.30 Chronic kidney disease, stage 3 unspecified; E83.39 Other disorders of phosphorus metabolism; R33.9 Retention of urine, unspecified; E87.5 Hyperkalemia
CPT/HCPCS: 36415; 36600; 70450; 71045; 71250; 71275; 76604; 76770; 76942; 80048; 80053; 81001; 82040; 82150; 82803; 82945; 82948; 83036; 83605; 83615; 83690; 83735; 83880; 84100; 84155; 84157; 84436; 84439; 84443; 84479; 84484; 85025; 85379; 85610; 85730; 86140; 87040; 87070; 87075; 87081; 87086; 87205; 87420; 87804; 89051; 92950; 93005; 93970; 94003; 94640; 94660; 96365; 96366; 99285; C9113; J0461; J1265; J1815; J1940; J2001; J2060; J2370; J2543; J3475; J3490; J7030; J7042; J7060; P9041; Q9967; U0003